=== PATIENT | male | born 1955 | race Caucasian/White ===

== ENCOUNTER 2020-05-02 04:20 | Emergency (ER) | payer MEDICARE, MEDICAID ==
[2020-05-02] MEDS ORDERED: Albuterol/Ipratropium 3.0-0.5 MG/3 ML Neb Soln NEB ONE (05:00)
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
[2020-05-02 05:35] LABS: ANION GAP 9.8 mmol/L (5-15); CHLORIDE,CL 108 mmol/L (98-107); SODIUM,NA 144 mmol/L (136-145)
[2020-05-02] MEDS ORDERED: Furosemide 40 MG/4 ML VIAL IVPUSH ONE (06:08)
[2020-05-02 06:53] VITALS: BP 148/76; PULSE 62
[2020-05-02 07:06] LABS: PCO2 ARTERIAL,POC 47 mmHg (35-48)
--- NOTE | 2020-05-02 08:06 | CR ---
[id number] RAD/RAD Chest PA or AP 1V EXAM: SINGLE VIEW CHEST. INDICATION: SHORTNESS OF BREATH COMPARISON: CORRELATION IS MADE WITH NOVEMBER 09, 2012 FINDINGS: There is mild to moderate edema. There are small bilateral effusions The cardiac silhouette is enlarged IMPRESSION: MODERATE CHF Mane Castillo MD 05/02/20 0805 Thank you for allowing us to participate in the care of your patient.
== END 2020-05-02 07:03 ==
LOC: KA.ED 04:20
DX: I50.9 Heart failure, unspecified (principal); R60.1 Generalized edema; R09.02 Hypoxemia; R00.1 Bradycardia, unspecified; E11.9 Type 2 diabetes mellitus without complications; F17.210 Nicotine dependence, cigarettes, uncomplicated; Z20.822 Contact with and (suspected) exposure to COVID-19; Z91.041 Radiographic dye allergy status; Z79.899 Other long term (current) drug therapy
CPT/HCPCS: 36600; 71045; 80053; 82803; 83880; 84484; 85025; 93005; 94640; 96374; 99284; 99285-25; J1940; J7620-GY; U0002

== ENCOUNTER 2021-01-19 04:53 | Inpatient (IN) | payer MEDICARE, MEDICAID ==
[2021-01-19] MEDS ORDERED: Sodium Chloride 0.9% 10 ML Syringe FLUSH PRN (05:15)
[2021-01-19] MEDS ORDERED: Aspirin 81 MG Tab.Chew PO ONE (05:17)
[2021-01-19] MEDS ORDERED: Albuterol/Ipratropium 3.0-0.5 MG/3 ML Neb Soln NEB ONE (05:40)
[2021-01-19 06:26] LABS: CHLORIDE,CL 107 mmol/L (98-107); SODIUM,NA 147 mmol/L (136-145)
--- NOTE | 2021-01-19 07:54 | EDM.PDOC ---
ED HPI GENERAL MEDICAL PROBLEM - General Chief Complaint: General Stated Complaint: chest pain, SOB Time Seen by Provider: 01/19/21 05:10 Source of Information: Reports: Patient History Limitations: Reports: No Limitations - History of Present Illness INITIAL COMMENTS - FREE TEXT/NARRATIVE: 65-year-old male presents to the emergency room with complaints of dyspnea and chest pain over the last 48 hours. Patient has a long history of COPD and cardiac. He is on home oxygen at night. O2 saturation upon arrival was at 58%. He was placed on a nonrebreather at 10 L and O2 saturations improved nicely to 96%. He states that he began having increasing shortness of breath and chest pain over the last 48 hours. He denies any diaphoresis. He feels he is had some increased swelling in his lower legs. He denies any radiation of his chest pain to his shoulder back jaw or abdomen. No nausea or vomiting. No recent respiratory infections. 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 He had a CT scan noncontrast on 12/29/2020. CT findings showed chronic extensive changes along paronychia with an overall findings appearing stable. He has stable pulmonary nodules. Showing severe coronary artery calcifications. Most recent cardiac nuclear study dated is 6 on 06/12/20. He continues to be a current a smoker half a pack a day. He has smoked for the past 40+ years. He was at 1 time a 2 to 3 pack a day smoker. Past medical history is significant for non-ST elevated SD. Hypertension, diabetes, morbid obesity, congestive heart failure with preserved ejection fraction. Respiratory failure, hyperlipidemia. Postsurgical history includes drug-eluting coronary stent placement, AAA repair, long-term current use of anticoagulation, paradoxical atrial fibrillation. Onset: Gradual Onset Date: 01/17/21 Duration: Day(s):, Getting Worse Location: Reports: Chest Severity: Moderate Improves with: Reports: Rest Worsens with: Reports: Breathing, Movement Associated Symptoms: Reports: Chest Pain, Cough, Shortness of Breath. Denies: cough w sputum, Diaphoresis, Fever/Chills, Headaches, Nausea/Vomiting, Syncope Treatments CAR CUSTOMIZER: Reports: Oxygen (Home O2) Left Chest Pain Score (Numeric/FACES): 8 - Related Data Allergies Allergy/AdvReac Type Severity Reaction Status Date / Time dye for diagnostic testing Allergy Edema Uncoded 01/19/21 05:38 Home Meds: Home Meds atorvaSTATin [Lipitor] 40 mg PO DAILY 10/01/14 [History] metFORMIN [Glucophage] 1,000 mg PO BID 10/01/14 [History] Gabapentin [Neurontin] 300 mg PO TID 05/02/20 [History] Metoprolol Tartrate 50 mg PO BID 05/02/20 [History] Omeprazole 20 mg PO QAM 05/02/20 [History] Terbinafine HCl 250 mg PO DAILY 05/02/20 [History] amLODIPine Besylate [Amlodipine Besylate] 10 mg PO DAILY 05/02/20 [History] Albuterol [Ventolin HFA] 2 puff INH Q4H PRN 01/19/21 [History] Aspirin [Aspirin EC] 81 mg PO DAILY 01/19/21 [History] Bumetanide [Bumex] 2 mg PO DAILY 01/19/21 [History] Hydrocodone/Acetaminophen [HYDROcodone-Acetaminophen 10-325 MG] 1 each PO BID PRN 01/19/21 [History] Isosorbide Mononitrate [Isosorbide Mononitrate ER] 60 mg PO DAILY 01/19/21 [History] Liraglutide [Victoza 3-Wilian] 1.8 mg SQ DAILY 01/19/21 [History] Azqsmdaq-Pqgftvfvt-Esgvczrejfktsf (Cortisporin) 4 drop EARRT TID 01/19/21 [History] Nitroglycerin [Nitrostat] 0.4 mg SL ASDIRECTED PRN 01/19/21 [History] Olopatadine [Patanol 0.1% Ophth Soln] 1 drop EYEBOTH BID PRN 01/19/21 [History] Umeclidinium [place] [Incruse Ellipta] 62.5 mcg IN DAILY 01/19/21 [History] Warfarin Sodium [Jantoven] 5 mg PO ASDIRECTED 01/19/21 [History] Past Medical History Cardiovascular History: Reports: High Cholesterol, Hypertension, Stents Respiratory History: Reports: SOB Musculoskeletal History: Reports: Back Pain, Chronic Endocrine/Metabolic History: Reports: Diabetes, Type II - Infectious Disease History Infectious Disease History: Reports: Measles, Mumps - Past Surgical History Cardiovascular Surgical History: Reports: AAA Repair, Coronary Artery Stent Other Cardiovascular Surgeries/Procedures: AAA repair 01/12/20 Musculoskeletal Surgical History: Reports: Knee Replacement, Other (See Below) Other Musculoskeletal Surgeries/Procedures:: back surgery Social & Family History - Caffeine Use Caffeine Use: Reports: Coffee ED ROS GENERAL - Review of Systems Review Of Systems: See Below Constitutional: Reports: Weakness. Denies: Fever, Chills, Diaphoresis HEENT: Reports: No Symptoms Respiratory: Reports: Shortness of Breath, Cough. Denies: Sputum Cardiovascular: Reports: Chest Pain, Blood Pressure Problem, Dyspnea on Exertion. Denies: Orthopnea Endocrine: Reports: No Symptoms GI/Abdominal: Denies: Abdominal Pain, Nausea, Vomiting : Reports: No Symptoms Musculoskeletal: Denies: Joint Pain, Joint Swelling Skin: Denies: Cyanosis, Jaundice, Pallor, Diaphoresis, Pruritis, Rash Neurological: Denies: Confusion, Dizziness, Headache, Trouble Speaking Psychiatric: Reports: No Symptoms Hematologic/Lymphatic: Reports: No Symptoms Immunologic: Reports: No Symptoms ED EXAM, GENERAL - Physical Exam Exam: See Below Exam Limited By: No Limitations General Appearance: Alert, No Apparent Distress, Obese Eye Exam: Bilateral Eye: EOMI, PERRL Ears: Hearing Grossly Normal Nose: Normal Inspection Throat/Mouth: Normal Inspection, Normal Lips, Normal Voice, No Airway Compromise. No: Perioral Cyanosis Head: Atraumatic, Normocephalic Neck: Normal Inspection, Supple, Non-Tender, Full Range of Motion Respiratory/Chest: Respiratory Distress, Decreased Breath Sounds, Crackles, Wheezing. No: Accessory Muscle Use, Retractions, Splinting Cardiovascular: Normal Peripheral Pulses, Regular Rate, Rhythm Peripheral Pulses: 1+: Dorsalis Pedis (L), Dorsalis Pedis (R), 2+: Carotid (L), Carotid (R), Radial (L), Radial (R) GI/Abdominal: Soft, Non-Tender, No Abnormal Bruit Back Exam: Normal Inspection Extremities: Normal Inspection, Pedal Edema (Mild bilateral lower extremities nonpitting) Neurological: Alert, Oriented, No Motor/Sensory Deficits #1 Interpretation EKG Date: 01/19/21 Time: 05:01 Rhythm: Other (Sinus rhythm with premature atrial complexes) [place]: Normal P-Wave: Variable QRS: Normal ST-T: Other (ST abnormality, possible digitalis effect) QT: Prolonged Comparison: NA - No Prior EKG EKG Interpretation Comments: Sinus rhythm with premature atrial complexes with aberrant conduction ST abnormality, possible digitalis effect Prolonged QT abnormal ECG Course - Vital Signs Last Recorded V/S: Last Vital Signs Temp 97.3 F 01/19/21 04:58 Pulse 75 01/19/21 07:37 Resp 16 01/19/21 07:37 BP 164/98 H 01/19/21 07:37 Pulse Ox 96 01/19/21 07:37 - Orders/Labs/Meds Orders: Active Orders 24 hr Category Date Time Status Peripheral IV Care [RC] . DIRECTED Care 01/19/21 05:15 Active RT Aerosol Therapy [RC] ASDIRECTED Care 01/19/21 05:40 Active Sodium Chloride 0.9% [Saline Flush] Med 01/19/21 05:15 Active 10 ml FLUSH Q8HR PRN Peripheral IV Insertion Adult [OM.PC] Routine Oth 01/19/21 05:15 Ordered EKG 12 Lead [EK] Stat Ther 01/19/21 05:00 Ordered Medication Orders Sodium Chloride (Sodium Chloride 0.9% 10 Ml Syringe) 10 ml FLUSH Q8HR PRN PRN Reason: keep vein open Last Admin: 01/19/21 05:33 Dose: 10 ml Documented by: TATY Labs: Laboratory Tests 01/19/21 01/19/21 01/19/21 Range/Units 05:35 05:35 06:00 WBC 7.36 (5.00-10.00) 10^3/uL RBC 4.12 L (4.50-6.00) 10^6/uL Hgb 10.7 L (13.0-17.0) g/dL Hct 35.3 L (40.0-52.0) % MCV 85.7 (82.0-92.0) fL MCH 26.0 L (27.0-31.0) pg MCHC 30.3 L (32.0-36.0) g/dL RDW 15.9 H (11.5-14.5) % Plt Count 275 (150-400) 10^3/uL MPV 8.7 (7.4-10.4) fL Immature Gran % (Auto) 0.4 (0.0-5.0) % Neut % (Auto) 66.3 (50.0-70.0) % Lymph % (Auto) 19.7 L (20.0-40.0) % [place] % (Auto) 8.0 (2.0-8.0) % Eos % (Auto) 5.2 H (1.0-3.0) % Baso % (Auto) 0.4 (0.0-1.0) % Neut # (Auto) 4.88 (2.50-7.00) 10^3/uL Lymph # (Auto) 1.45 (1.00-4.00) 10^3/uL [place] # (Auto) 0.59 (0.10-0.80) 10^3/uL Eos # (Auto) 0.38 H (0.10-0.30) 10^3/uL Baso # (Auto) 0.03 (0.00-0.10) 10^3/uL Immature Gran # (Auto) 0.03 (0.00-0.50) 10^3/uL Sodium 147 H (136-145) mmol/L Potassium 3.9 (3.5-5.1) mmol/L Chloride 107 (98-107) mmol/L Carbon Dioxide 29.9 (21.0-32.0) mmol/L Anion Gap 14.0 (5-15) mmol/L BUN 20 H (7-18) mg/dL Creatinine 1.02 (0.51-1.17) mg/dL Est Cr Clr Drug Dosing TNP Estimated GFR (MDRD) > 60 mL/min Glucose 204 H (70-140) mg/dL Calcium 8.6 L (8.7-10.3) mg/dL Troponin I High Sens 24.600 (0-76.000) pg/mL B-Natriuretic Peptide 429 H (0-100) pg/mL SARS CoV-2 RNA Rapid ILA Negative (NEGATIVE) Meds: Medications Generic Name Dose Route Start Last Admin Trade Name Freq PRN Reason Stop Dose Admin Sodium Chloride 10 ml 01/19/21 05:15 01/19/21 05:33 Sodium Chloride 0.9% 10 Ml Syringe FLUSH 10 ml Q8HR PRN Administration keep vein open Discontinued Medications Generic Name Dose Route Start Last Admin Trade Name Freq PRN Reason Stop Dose Admin Albuterol/Ipratropium 3 ml 01/19/21 05:40 01/19/21 05:51 Albuterol/Ipratropium 3.0-0.5 Mg/3 Ml Neb Soln NEB 11/05/21 05:41 3 ml ONETIME ONE Administration Aspirin 324 mg 01/19/21 05:17 01/19/21 05:25 Aspirin 81 Mg Tab.Chew PO 01/19/21 05:18 324 mg ONETIME ONE Administration - Radiology Interpretation Free Text/Narrative:: 2 view chest x-ray Findings: Heart size within normal limits. Similar interstitial opacification scattered throughout the bilateral lungs. Small right pleural effusion is stable. No suspicious bony lesions. Impression: Similar interstitial lung opacification from either pulmonary edema or pneumonia. Stable right pleural effusion. CT chest without IV contrast. Comparison: Correlation is made with current chest radiograph. Findings: There are nodule densities. There is a bilateral interstitial pattern. 5 mm nodule seen in the right lung base. Calcified granuloma seen in the right lung base. There are small effusions. There is significant mediastinal adenopathy. The interstitial pattern was present in April of this year. There is no adrenal mass. There is minimal prominence of the limbs of the left adrenal gland. There are tiny gallstones. Impression: Underlying interstitial pattern likely fibrosis. Central lobar oh emphysema. Occasional nonspecific nodular densities and granulomatosis changes. Superimposed component of edema suspected. Small right effusion. Minimal left effusion. Moderate mediastinal adenopathy. - Re-Assessments/Exams Free Text/Narrative Re-Assessment/Exam: 01/19/21 08:03 Patient was stable and feeling much better after DuoNeb treatment. He was maintaining greater than 96% O2 saturations on a nonrebreather. I did try to wean the patient off O2 saturation we placed him on nasal cannula at 4 L and was destat to the 89%. He was placed back on a nonrebreather at 10 L. Patient was maintaining O2 saturations currently 95%. CT scan was ordered this had to be noncontrast as he has an allergy previously to dye. Departure - Departure Time of Disposition: 08:38 Disposition: Admitted As Inpatient 65 Condition: Fair Clinical Impression: COPD with acute exacerbation, Hypoxic episode Congestive heart failure Qualifiers: Heart failure chronicity: acute - Discharge Information Forms: ED Department Discharge Sepsis Event Note (ED) - Evaluation Sepsis Screening Result: No Definite Risk - Focused Exam Vital Signs: Vital Signs Temp Pulse Pulse Resp BP BP Pulse Ox 01/19/21 07:37 75 16 164/98 H 96 01/19/21 07:16 71 19 165/86 H 92 L 11/05/21 07:01 68 17 157/83 H 93 L 01/19/21 06:46 70 15 158/84 H 86 L 01/19/21 06:40 85 L 01/19/21 06:36 88 L 01/19/21 06:31 76 155/81 H 96 01/19/21 06:16 71 150/81 H 93 L 01/19/21 06:01 74 154/82 H 94 L 01/19/21 05:46 85 21 H 01/19/21 05:40 80 01/19/21 05:31 84 24 H 159/88 H 92 L 01/19/21 05:16 79 22 H 143/83 H 97 01/19/21 05:01 83 21 H 171/91 H 98 01/19/21 04:58 97.3 F 87 18 171/100 H 95 Pulse Ox 01/19/21 07:37 01/19/21 07:16 01/19/21 07:01 01/19/21 06:46 01/19/21 06:40 01/19/21 06:36 01/19/21 06:31 01/19/21 06:16 01/19/21 06:01 01/19/21 05:46 01/19/21 05:40 97 01/19/21 05:31 01/19/21 05:16 01/19/21 05:01 01/19/21 04:58 - My Orders Last 24 Hours: My Active Orders 01/19/21 05:00 EKG 12 Lead [EK] Stat 01/19/21 05:15 Peripheral IV Care [RC] . DIRECTED Sodium Chloride 0.9% [Saline Flush] 10 ml FLUSH Q8HR PRN Peripheral IV Insertion Adult [OM.PC] Routine 01/19/21 05:40 RT Aerosol Therapy [RC] ASDIRECTED - Assessment/Plan Last 24 Hours: My Active Orders 01/19/21 05:00 EKG 12 Lead [EK] Stat 01/19/21 05:15 Peripheral IV Care [RC] . DIRECTED Sodium Chloride 0.9% [Saline Flush] 10 ml FLUSH Q8HR PRN Peripheral IV Insertion Adult [OM.PC] Routine 01/19/21 05:40 RT Aerosol Therapy [RC] ASDIRECTED Assessment:: Acute exacerbation of COPD, unable to maintain O2 saturations on nasal cannula. Congestive heart failure Hypoxic Plan: 1. CT scan was negative for PE. Patient has acute exacerbation of his COPD unable to maintain O2 saturations on nasal cannula. He is breathing much better now that he has had a DuoNeb treatment and nonrebreather. His COVID rapid test was negative. Troponin levels were negative. White count remains abnormal. Patient is unable to maintain O2 saturations and will not be able to go home he is going to need to be admitted for acute exacerbation of his COPD. Likely will need to be started on steroids including nebulized treatments. And mildly elevated congestive heart failure exacerbation patient will likely need to be diuresed. I discussed this with [place] provider fire suppression captain who will accept the patient as an inpatient admission.
--- NOTE | 2021-01-19 08:17 | CR ---
[id number] RAD/RAD Chest PA And Lateral EXAM: RAD Chest PA And Lateral CLINICAL DATA: CHEST PAIN SHORTNESS OF BREATH COMPARISON: CORRELATION IS MADE WITH THE CURRENT CAT SCAN CORRELATION IS MADE WITH FILMS 2020 FINDINGS: There is an interstitial pattern There is a small moderate right pleural effusion The lungs are hyperaerated The cardiomediastinal contour is stable but enlarged IMPRESSION: PROBABLE MODERATE CONGESTIVE HEART FAILURE Mane Castillo MD 01/19/21 0816 Thank you for allowing us to participate in the care of your patient.
--- NOTE | 2021-01-19 08:20 | CT ---
[id number] CT/CT Chest WO IV Exam: CT Chest WO IV Clinical Data: SHORTNESS OF BREATH COMPARISON: CORRELATION IS MADE WITH THE CURRENT CHEST RADIOGRAPH FINDINGS: There is a bilateral interstitial pattern There are nodular densities A 5 mm nodule is seen at the right lung base on image 70, series 3 A calcified granuloma is seen at the right lung base on image 1, series 2 There are small effusions There is significant mediastinal adenopathy The interstitial pattern was present in April this year. There is no adrenal mass There is minimal prominence of the limbs of the left adrenal gland There are tiny gallstones IMPRESSION: UNDERLYING INTERSTITIAL PATTERN LIKELY FIBROSIS CENTRILOBULAR EMPHYSEMA OCCASIONAL NONSPECIFIC NODULAR DENSITIES AND GRANULOMATOUS CHANGES SUPERIMPOSED COMPONENT OF EDEMA SUSPECTED SMALL RIGHT EFFUSION MINIMAL LEFT EFFUSION MODERATE MEDIASTINAL ADENOPATHY Mane Castillo MD 01/19/21 0819 Thank you for allowing us to participate in the care of your patient.
[2021-01-19 09:32] LABS: O2 DELIVERY DEVICE NON REBR MASK
[2021-01-19 09:37] LABS: O2 SATURATION ARTERIAL 78 %; PCO2 ARTERIAL 42 mmHg (35-48)
[2021-01-19 09:38] LABS: BASE EXCESS ARTERIAL 0 mmol/L ((-2)-(+3)); BICARBONATE,ARTERIAL 25 mmol/L (21-28)
[2021-01-19 09:40] LABS: PO2 ARTERIAL 43 mmHg (83-108)
--- NOTE | 2021-01-19 09:44 | PCM.HP.2 ---
H&P History of Present Illness - General Date of Service: 01/19/21 Admit Problem/Dx: Admission Diagnosis/Problem Admission Diagnosis/Problem COPD, Severe chronic obstructive pulmonary disease Left Chest Pain Score (Numeric/FACES): 8 - Related Data Allergies/Adverse Reactions: Allergies Allergy/AdvReac Type Severity Reaction Status Date / Time dye for diagnostic testing Allergy Edema Uncoded 01/19/21 05:38 Home Medications: Home Meds atorvaSTATin [Lipitor] 40 mg PO DAILY 10/01/14 [History] metFORMIN [Glucophage] 1,000 mg PO BID 10/01/14 [History] Gabapentin [Neurontin] 300 mg PO TID 05/02/20 [History] Metoprolol Tartrate 50 mg PO BID 05/02/20 [History] Omeprazole 20 mg PO QAM 05/02/20 [History] Terbinafine HCl 250 mg PO DAILY 05/02/20 [History] amLODIPine Besylate [Amlodipine Besylate] 10 mg PO DAILY 05/02/20 [History] Albuterol [Ventolin HFA] 2 puff INH Q4H PRN 01/19/21 [History] Aspirin [Aspirin EC] 81 mg PO DAILY 01/19/21 [History] Bumetanide [Bumex] 2 mg PO DAILY 01/19/21 [History] Hydrocodone/Acetaminophen [HYDROcodone-Acetaminophen 10-325 MG] 1 each PO BID PRN 01/19/21 [History] Isosorbide Mononitrate [Isosorbide Mononitrate ER] 60 mg PO DAILY 01/19/21 [History] Liraglutide [Victoza 3-Wilian] 1.8 mg SQ DAILY 01/19/21 [History] Xmlmipat-Fukrlqgzc-Hypgccygweviry (Cortisporin) 4 drop EARRT TID 01/19/21 [History] Nitroglycerin [Nitrostat] 0.4 mg SL ASDIRECTED PRN 01/19/21 [History] Olopatadine [Patanol 0.1% Ophth Soln] 1 drop EYEBOTH BID PRN 01/19/21 [History] Umeclidinium [place] [Incruse Ellipta] 1 puff IN DAILY 01/19/21 [History] Warfarin Sodium [Jantoven] 5 mg PO ASDIRECTED 01/19/21 [History] Past Medical History Cardiovascular History: Reports: Afib, CAD, Heart Failure, High Cholesterol, Hypertension, Stents Other Cardiovascular History: NSTEMI Respiratory History: Reports: COPD, Interstitial Lung Disease, Intubation, Difficult, SOB Gastrointestinal History: Reports: Colon Polyp, GERD Musculoskeletal History: Reports: Back Pain, Chronic Endocrine/Metabolic History: Reports: Diabetes, Type II, Obesity/BMI 30+ Hematologic History: Reports: Anticoagulation Therapy - Infectious Disease History Infectious Disease History: Reports: Measles, Mumps - Past Surgical History Cardiovascular Surgical History: Reports: AAA Repair, Coronary Artery Stent Other Cardiovascular Surgeries/Procedures: AAA repair 01/12/20 Musculoskeletal Surgical History: Reports: Knee Replacement, Other (See Below) Other Musculoskeletal Surgeries/Procedures:: back surgery Social & Family History - Tobacco Use Tobacco Use Status *Q: Current Every Day Tobacco User Years of Tobacco use: 45 Packs/Tins Daily: 0.5 - Caffeine Use Caffeine Use: Reports: Energy Drinks, Soda Other Caffeine Use: 01-19-21: "I usually have 4-5 energy drinks a day, but I quit 2 days ago. I quit drinking soda 2 days ago also." - Recreational Drug Use Recreational Drug Use: No H&P Review of Systems - Review of Systems: Review Of Systems: See Below Free Text/Narrative: Patient reports increased SOB the past 2 days with "bubbly cough," increased leg swelling and difficulty breathing when lying flat which has prompted him to use additional pillows at night. Denies fever, chills. General: Reports: No Symptoms HEENT: Reports: No Symptoms Pulmonary: Reports: Shortness of Breath, Pleuritic Chest Pain, Cough (bubbly sputum) Cardiovascular: Reports: Chest Pain, Dyspnea on Exertion, Edema Gastrointestinal: Reports: No Symptoms. Denies: Nausea Genitourinary: Reports: No Symptoms Musculoskeletal: Reports: No Symptoms Skin: Reports: No Symptoms Psychiatric: Reports: No Symptoms Neurological: Reports: No Symptoms Hematologic/Lymphatic: Reports: No Symptoms Immunologic: Reports: No Symptoms Exam - Exam Exam: See Below - Vital Signs Vital Signs: Last Vital Signs Temp 97.3 F 01/19/21 04:58 Pulse 70 01/19/21 08:34 Resp 18 01/19/21 08:34 BP 142/77 H 01/19/21 08:34 Pulse Ox 97 01/19/21 08:34 Weight: 270 lb - Exam Quality Assessment: Supplemental Oxygen (titrated down to 4L NC) General: Alert, Oriented, Cooperative, Mild Distress HEENT: Conjunctiva Clear, Mucosa Moist & [place], Other (reddneded nose) Neck: Supple, Trachea Midline Lungs: Decreased Breath Sounds, Crackles, Wheezing (mild). No: Rhonchi Cardiovascular: Regular Rate, Regular Rhythm. No: Systolic Murmur GI/Abdominal Exam: Normal Bowel Sounds, Soft, Non-Tender, No Distention (Male) Exam: Deferred Rectal (Males) Exam: Deferred Extremities: Normal Inspection, Normal Range of Motion, Non-Tender, Normal Capillary Refill, Pedal Edema (2+ bilaterally ) Peripheral Pulses: 2+: Dorsalis Pedis (L), Dorsalis Pedis (R) Skin: Warm, Dry, Intact Neurological: Normal Speech Neuro Extensive - Mental Status: Alert, Oriented x3, Normal Mood/Affect, Normal Cognition Psychiatric: Alert, Normal Affect, Normal Mood Physical Exam Comments:: Clubbing of the fingertips which are dusky in color - Patient Data Lab Results Last 24 hrs: Laboratory Results - last 24 hr 01/19/21 01/19/21 01/19/21 Range/Units 05:35 05:35 06:00 WBC 7.36 (5.00-10.00) 10^3/uL RBC 4.12 L (4.50-6.00) 10^6/uL Hgb 10.7 L (13.0-17.0) g/dL Hct 35.3 L (40.0-52.0) % MCV 85.7 (82.0-92.0) fL MCH 26.0 L (27.0-31.0) pg MCHC 30.3 L (32.0-36.0) g/dL RDW 15.9 H (11.5-14.5) % Plt Count 275 (150-400) 10^3/uL MPV 8.7 (7.4-10.4) fL Immature Gran % (Auto) 0.4 (0.0-5.0) % Neut % (Auto) 66.3 (50.0-70.0) % Lymph % (Auto) 19.7 L (20.0-40.0) % [place] % (Auto) 8.0 (2.0-8.0) % Eos % (Auto) 5.2 H (1.0-3.0) % Baso % (Auto) 0.4 (0.0-1.0) % Neut # (Auto) 4.88 (2.50-7.00) 10^3/uL Lymph # (Auto) 1.45 (1.00-4.00) 10^3/uL [place] # (Auto) 0.59 (0.10-0.80) 10^3/uL Eos # (Auto) 0.38 H (0.10-0.30) 10^3/uL Baso # (Auto) 0.03 (0.00-0.10) 10^3/uL Immature Gran # (Auto) 0.03 (0.00-0.50) 10^3/uL ABG pH (7.35-7.45) pH ABG pCO2 (35-48) mmHg ABG pO2 (83-108) mmHg ABG HCO3 (21-28) mmol/L ABG Total CO2 (22-29) mmol/L ABG O2 Saturation % ABG Base Excess ((-2)-(+3)) mmol/L O2 Delivery Device Sodium 147 H (136-145) mmol/L Potassium 3.9 (3.5-5.1) mmol/L Chloride 107 (98-107) mmol/L Carbon Dioxide 29.9 (21.0-32.0) mmol/L Anion Gap 14.0 (5-15) mmol/L BUN 20 H (7-18) mg/dL Creatinine 1.02 (0.51-1.17) mg/dL Est Cr Clr Drug Dosing TNP Estimated GFR (MDRD) > 60 mL/min Glucose 204 H (70-140) mg/dL Calcium 8.6 L (8.7-10.3) mg/dL Troponin I High Sens 24.600 (0-76.000) pg/mL B-Natriuretic Peptide 429 H (0-100) pg/mL SARS CoV-2 RNA Rapid ILA Negative (NEGATIVE) 01/19/21 Range/Units 09:25 WBC (5.00-10.00) 10^3/uL RBC (4.50-6.00) 10^6/uL Hgb (13.0-17.0) g/dL Hct (40.0-52.0) % MCV (82.0-92.0) fL MCH (27.0-31.0) pg MCHC (32.0-36.0) g/dL RDW (11.5-14.5) % Plt Count (150-400) 10^3/uL MPV (7.4-10.4) fL Immature Gran % (Auto) (0.0-5.0) % Neut % (Auto) (50.0-70.0) % Lymph % (Auto) (20.0-40.0) % [place] % (Auto) (2.0-8.0) % Eos % (Auto) (1.0-3.0) % Baso % (Auto) (0.0-1.0) % Neut # (Auto) (2.50-7.00) 10^3/uL Lymph # (Auto) (1.00-4.00) 10^3/uL [place] # (Auto) (0.10-0.80) 10^3/uL Eos # (Auto) (0.10-0.30) 10^3/uL Baso # (Auto) (0.00-0.10) 10^3/uL Immature Gran # (Auto) (0.00-0.50) 10^3/uL ABG pH 7.38 (7.35-7.45) pH ABG pCO2 42 (35-48) mmHg ABG pO2 43 L* (83-108) mmHg ABG HCO3 25 (21-28) mmol/L ABG Total CO2 26 (22-29) mmol/L ABG O2 Saturation 78 % ABG Base Excess 0 ((-2)-(+3)) mmol/L O2 Delivery Device Non rebr mask Sodium (136-145) mmol/L Potassium (3.5-5.1) mmol/L Chloride (98-107) mmol/L Carbon Dioxide (21.0-32.0) mmol/L Anion Gap (5-15) mmol/L BUN (7-18) mg/dL Creatinine (0.51-1.17) mg/dL Est Cr Clr Drug Dosing Estimated GFR (MDRD) mL/min Glucose (70-140) mg/dL Calcium (8.7-10.3) mg/dL Troponin I High Sens (0-76.000) pg/mL B-Natriuretic Peptide (0-100) pg/mL SARS CoV-2 RNA Rapid ILA (NEGATIVE) Result Diagrams: 01/20/21 05:11 01/20/21 07:00 Sepsis Event Note - Evaluation Sepsis Screening Result: No Definite Risk - Focused Exam Vital Signs: Vital Signs Temp Pulse Pulse Resp BP BP Pulse Ox 01/19/21 08:34 70 18 142/77 H 97 01/19/21 07:37 75 16 164/98 H 96 01/19/21 07:16 71 19 165/86 H 92 L 01/19/21 07:01 68 17 157/83 H 93 L 01/19/21 06:46 70 15 158/84 H 86 L 01/19/21 06:40 85 L 01/19/21 06:36 88 L 01/19/21 06:31 76 155/81 H 96 01/19/21 06:16 71 150/81 H 93 L 01/19/21 06:01 74 154/82 H 94 L 01/19/21 05:46 85 21 H 01/19/21 05:40 80 01/19/21 05:31 84 24 H 159/88 H 92 L 01/19/21 05:16 79 22 H 143/83 H 97 01/19/21 05:01 83 21 H 171/91 H 98 01/19/21 04:58 97.3 F 87 18 171/100 H 95 Pulse Ox 01/19/21 08:34 01/19/21 07:37 01/19/21 07:16 01/19/21 07:01 01/19/21 06:46 01/19/21 06:40 01/19/21 06:36 01/19/21 06:31 01/19/21 06:16 01/19/21 06:01 01/19/21 05:46 01/19/21 05:40 97 01/19/21 05:31 01/19/21 05:16 01/19/21 05:01 01/19/21 04:58 Problem List Initiated/Reviewed/Updated: Yes Orders Last 24hrs: Active Orders 24 hr Category Date Time Status Patient Status [ADT] Routine ADT 01/19/21 08:45 Active Cardiac Monitoring [RC] CONTINUOUS Care 01/19/21 09:39 Ordered Height and Weight [RC] DAILY Care 01/19/21 09:38 Ordered Intake and Output [RC] QSHIFT Care 01/19/21 09:39 Ordered Oxygen Therapy [RC] PRN Care 01/19/21 09:38 Ordered RT Aerosol Therapy [RC] ASDIRECTED Care 01/19/21 05:40 Active Up With Assistance [RC] ASDIRECTED Care 01/19/21 09:38 Ordered VTE/DVT Education [RC] PER UNIT ROUTINE Care 01/19/21 09:38 Ordered Vital Signs [RC] Q4H Care 01/19/21 08:45 Active Vital Signs [RC] Q4H Care 01/19/21 09:38 Ordered [employer] Diet [DIET] Diet 01/19/21 Lunch Ordered Heart Healthy Diet [DIET] Diet 01/19/21 Lunch Ordered Furosemide [Lasix] Med 01/19/21 09:45 Ordered 40 mg IVPUSH BID Sodium Chloride 0.9% [Saline Flush] Med 01/19/21 05:15 Active 10 ml FLUSH Q8HR PRN Peripheral IV Insertion Adult [OM.PC] Routine Oth 01/19/21 05:15 Ordered Resuscitation Status Routine Resus Stat 01/19/21 09:38 Ordered EKG 12 Lead [EK] Stat Ther 01/19/21 05:00 Ordered Medication Orders Furosemide (Furosemide 40 Mg/4 Ml Vial) 40 mg IVPUSH BID FORTUNATO Sodium Chloride (Sodium Chloride 0.9% 10 Ml Syringe) 10 ml FLUSH Q8HR PRN PRN Reason: keep vein open Last Admin: 01/19/21 05:33 Dose: 10 ml Documented by: TATY Assessment/Plan Comment:: HPI summary: Mo is a 65yM patient who presented to the ER with c/o of dyspnea and chest pain over the last 48 hours. Patient has a long history of COPD and cardiac issues. He is on home oxygen at night at 3L. He denies any diaphoresis. He feels he is had some increased swelling in his lower legs. He denies any radiation of his chest pain to his shoulder back jaw or abdomen. No nausea or vomiting. No recent respiratory infections. He was recently seen by his residential treatment specialist. He had a CT scan noncontrast on 12/29/2020. CT findings showed chronic extensive changes along paronychia with an overall findings appearing stable. He has stable pulmonary nodules. Showing severe coronary artery calcifications. Most recent cardiac nuclear study dated is 6 on 06/12/20. He continues to be a current a smoker half a pack a day. He has smoked for the past 40+ years. He was at 1 time a 2 to 3 pack a day smoker. Past medical history is significant for non-ST elevated UT, Hypertension, diabetes, morbid obesity, congestive heart failure with preserved ejection fraction, Respiratory failure, hyperlipidemia. Postsurgical history includes drug-eluting coronary stent placement, AAA repair, long-term current use of anticoagulation, paradoxical atrial fibrillation. Patient had cardiac cath in June,: RCA 80% stenosis and double vessel CAD involving the Left main, LAD and LCx and medi qi management was recommended at that time. ED course: O2 saturation upon arrival was at 58%. He was placed on a nonrebreather at 10 L and O2 saturations improved to 96%.CXR indicated moderate CHF exacerbation, CT indicated centrillobular emphysema, underlying interstitial pattern - likely fibrosis, small R pleural effusion, trace L pleural effusion with edema suspected. WBC 7.36, Hgb 10.7, Plt 275. Na 147, K 3.9, BUN 20, Creatinine 1.02, Glu 204, BNP 429. EKG: NSR w PAC's, Prolonged QT - GA 196ms, QRS 102ms, QTc 492. Trop negative. Hospital course: 01/19/21: Patient c/o increased SOB, worsened edema to his legs, increased difficulty lying flat the past few nights and "bubbly cough." Denies fever, chills. No increased wheezing. Crackles to bilateral bases, +2 edema to bilateral lower extremities. O2 adequate on 4-5L, would avoid flow rates greater than this if possible due to COPD and concern of hypercapnia. pH 7.38, CO2 42, HCO3 25. Suspect CHF exacerbation is likely etiology of symptoms rather than COPD based on HPI, imaging results and exam findings. Will plan to diurese patient with IV lasix. Patient had increased bumex dosing for 3 days approximately two weeks ago and is scheduled to follow up with cardiology [facility] on 01/24. Patient continues to smoke and does not want a nicotine patch. He has significant clubbing of his fingertips which are rather dusky. Hospitalization problems and plan: # Acute on chronic congestive heart failure; BNP 429, pleural effusion and edema per chest CT results # Acute hypoxic respiratory failure - Lasix 40mg IV BID for diuresis - Supplemental oxygen to maintain O2 sat > 88% - Daily weight - I&O - Continue cardiac monitoring - Repeat labs in am CBC, CMP, Mg, Phos, INR Chronic, stable conditions: # HFpEF - on bumex 2mg daily (Hold while on IV lasix) # CAD - continue metoprolol tartrate 50mg BI; isosorbide 60mg PO daily, aspirin 81mg daily # Hx of NSTEMI # HTN - Amlodipine 10mg PO daily # PAF - continue warfarin dosing per pharmacy; INR 2.5 today # s/p AAA repair # COPD - on incruse ellipta (substitute spiriva per pharmacy) and proair inhaler PRN; home oxygen at night 3L at baseline # Hx of respiratory failure # DM without complication - on victoza 1.8mg daily, continue metformin 1000mg PO BID; glucose checks QID with SSI coverage while hospitalized # HLD - Continue atorvastatin 40mg PO daily # Bilateral knee pain - continue gabapentin 300mg PO TID # Dyspepsia - on omeprazole 20mg PO daily (substitute pantoprazole 20mg PO daily) # Onychomycosis - takes lamisil 250mg PO daily (hold) # Tobacco dependency # Hx of colon polyps # s/p R TKA # s/p drug eluding cardiac stents # 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 I anticipate > 2 midnights for treatment of above hospital problems.
[2021-01-19] MEDS ORDERED: Furosemide 40 MG/4 ML VIAL IVPUSH SCH (09:45)
[2021-01-19] MEDS ORDERED: Albuterol 8 GM Inhaler INH PRN (13:39)
[2021-01-19] MEDS ORDERED: 50% Dextrose in Water 50 ML Syringe IVPUSH PRN (13:45)
[2021-01-19] MEDS ORDERED: Warfarin 5 MG Tab PO SCH (13:45)
[2021-01-19] MEDS ORDERED: Glucagon,Human Recombinant 1 MG Vial IM PRN (13:45)
[2021-01-19] MEDS: Gabapentin 300 MG Cap PO SCH ×2 (14:24→21:30)
[2021-01-19] MEDS: atorvaSTATin 40 MG Tab PO SCH (14:24)
[2021-01-19] MEDS: amLODIPine 5 MG Tab PO SCH (14:25)
[2021-01-19] MEDS: Isosorbide Mononitrate 30 MG Tab.ER PO SCH (14:26)
[2021-01-19] MEDS: Aspirin 81 MG Tab.EC PO SCH (15:59)
[2021-01-19] MEDS: Tiotropium Bromide 4 GM Inhalation Spray (2.5mcg/1 dose; 10 doses) INH SCH (17:33)
[2021-01-19] MEDS: Insulin Aspart 100 Units/ML 3 ML Pen SUBCUT SCH ×2 (17:34→21:34)
[2021-01-19] MEDS: Furosemide 40 MG/4 ML VIAL IVPUSH SCH (17:41)
[2021-01-19] MEDS ORDERED: Warfarin 2.5 MG Tab PO SCH (18:00)
[2021-01-19] MEDS: metFORMIN 500 MG Tab PO SCH (21:29)
[2021-01-19] MEDS: Pantoprazole 20 MG Tab, Delayed Release PO SCH (21:29)
[2021-01-19] MEDS: Metoprolol Tartrate 50 MG Tab PO SCH (21:30)
[2021-01-19] MEDS: Sodium Chloride 0.65% Nasal Spray 45 ML Bottle NAS PRN (21:55)
[2021-01-20 08:03] LABS: CHLORIDE,CL 108 mmol/L (98-107); SODIUM,NA 148 mmol/L (136-145)
[2021-01-20 08:18] LABS: ANION GAP 10.4 mmol/L (5-15)
[2021-01-20] MEDS: Furosemide 40 MG/4 ML VIAL IVPUSH SCH ×2 (08:20→17:53)
[2021-01-20] MEDS: Tiotropium Bromide 4 GM Inhalation Spray (2.5mcg/1 dose; 10 doses) INH SCH (08:24)
[2021-01-20] MEDS: atorvaSTATin 40 MG Tab PO SCH (08:24)
[2021-01-20] MEDS: Aspirin 81 MG Tab.EC PO SCH (08:24)
[2021-01-20] MEDS: metFORMIN 500 MG Tab PO SCH ×2 (08:24→21:16)
[2021-01-20] MEDS: Isosorbide Mononitrate 30 MG Tab.ER PO SCH (08:25)
[2021-01-20] MEDS: Gabapentin 300 MG Cap PO SCH ×3 (08:25→21:17)
[2021-01-20] MEDS: amLODIPine 5 MG Tab PO SCH (08:26)
[2021-01-20] MEDS: Metoprolol Tartrate 50 MG Tab PO SCH ×2 (08:26→21:35)
--- NOTE | 2021-01-20 09:27 | PCM.PN ---
- General Info Date of Service: 01/20/21 Functional Status: Reports: Pain Controlled, Tolerating Diet, Ambulating, Urinating. Denies: New Symptoms - Review of Systems General: Reports: No Symptoms HEENT: Reports: No Symptoms Pulmonary: Reports: Shortness of Breath (improving), Cough (improving), Wheezing Cardiovascular: Reports: Dyspnea on Exertion, Edema. Denies: Chest Pain, Palpitations, Lightheadedness Gastrointestinal: Reports: No Symptoms Genitourinary: Reports: No Symptoms Musculoskeletal: Reports: No Symptoms Skin: Reports: No Symptoms Neurological: Reports: No Symptoms Psychiatric: Reports: No Symptoms - Patient Data Vitals - Most Recent: Last Vital Signs Temp 97.1 F 01/20/21 06:22 Pulse 65 01/20/21 08:26 Resp 20 01/20/21 06:22 BP 124/66 01/20/21 08:26 Pulse Ox 88 L 01/20/21 06:22 Weight - Most Recent: 268 lb 3 oz I&O - Last 24 Hours: Intake & Output 01/19/21 01/20/21 01/20/21 22:59 06:59 14:59 Intake Total 510 400 Output Total 1400 400 Balance -890 0 Lab Results Last 24 Hours: Laboratory Results - last 24 hr 01/19/21 01/19/21 01/19/21 Range/Units 05:35 09:25 17:29 WBC (5.00-10.00) 10^3/uL RBC (4.50-6.00) 10^6/uL Hgb (13.0-17.0) g/dL Hct (40.0-52.0) % MCV (82.0-92.0) fL MCH (27.0-31.0) pg MCHC (32.0-36.0) g/dL RDW (11.5-14.5) % Plt Count (150-400) 10^3/uL MPV (7.4-10.4) fL Immature Gran % (Auto) (0.0-5.0) % Neut % (Auto) (50.0-70.0) % Lymph % (Auto) (20.0-40.0) % [place] % (Auto) (2.0-8.0) % Eos % (Auto) (1.0-3.0) % Baso % (Auto) (0.0-1.0) % Neut # (Auto) (2.50-7.00) 10^3/uL Lymph # (Auto) (1.00-4.00) 10^3/uL [place] # (Auto) (0.10-0.80) 10^3/uL Eos # (Auto) (0.10-0.30) 10^3/uL Baso # (Auto) (0.00-0.10) 10^3/uL Immature Gran # (Auto) (0.00-0.50) 10^3/uL PT 24.4 H (9.2-11.2) SEC INR 2.5 H (0.9-1.1) ABG pH 7.38 (7.35-7.45) pH ABG pCO2 42 (35-48) mmHg ABG pO2 43 L* (83-108) mmHg ABG HCO3 25 (21-28) mmol/L ABG Total CO2 26 (22-29) mmol/L ABG O2 Saturation 78 % ABG Base Excess 0 ((-2)-(+3)) mmol/L O2 Delivery Device Non rebr mask Sodium (136-145) mmol/L Potassium (3.5-5.1) mmol/L Chloride (98-107) mmol/L Carbon Dioxide (21.0-32.0) mmol/L Anion Gap (5-15) mmol/L BUN (7-18) mg/dL Creatinine (0.51-1.17) mg/dL Est Cr Clr Drug Dosing mL/min Estimated GFR (MDRD) mL/min Glucose (70-140) mg/dL POC Glucose 144 H (70-140) mg/dL Calcium (8.7-10.3) mg/dL Phosphorus (2.6-4.7) mg/dL Magnesium (1.8-2.4) mg/dL Total Bilirubin (0.2-1.0) mg/dL AST (15-37) U/L ALT (14-63) U/L Alkaline Phosphatase (46-116) U/L Total Protein (6.4-8.2) g/dL Albumin (3.40-5.00) g/dL 01/19/21 01/20/21 01/20/21 Range/Units 21:24 05:11 07:00 WBC 6.45 (5.00-10.00) 10^3/uL RBC 3.92 L (4.50-6.00) 10^6/uL Hgb 10.2 L (13.0-17.0) g/dL Hct 33.5 L (40.0-52.0) % MCV 85.5 (82.0-92.0) fL MCH 26.0 L (27.0-31.0) pg MCHC 30.4 L (32.0-36.0) g/dL RDW 16.0 H (11.5-14.5) % Plt Count 270 (150-400) 10^3/uL MPV 9.0 (7.4-10.4) fL Immature Gran % (Auto) 0.2 (0.0-5.0) % Neut % (Auto) 55.7 (50.0-70.0) % Lymph % (Auto) 27.0 (20.0-40.0) % [place] % (Auto) 10.2 H (2.0-8.0) % Eos % (Auto) 6.4 H (1.0-3.0) % Baso % (Auto) 0.5 (0.0-1.0) % Neut # (Auto) 3.60 (2.50-7.00) 10^3/uL Lymph # (Auto) 1.74 (1.00-4.00) 10^3/uL [place] # (Auto) 0.66 (0.10-0.80) 10^3/uL Eos # (Auto) 0.41 H (0.10-0.30) 10^3/uL Baso # (Auto) 0.03 (0.00-0.10) 10^3/uL Immature Gran # (Auto) 0.01 (0.00-0.50) 10^3/uL PT (9.2-11.2) SEC INR (0.9-1.1) ABG pH (7.35-7.45) pH ABG pCO2 (35-48) mmHg ABG pO2 (83-108) mmHg ABG HCO3 (21-28) mmol/L ABG Total CO2 (22-29) mmol/L ABG O2 Saturation % ABG Base Excess ((-2)-(+3)) mmol/L O2 Delivery Device Sodium 148 H (136-145) mmol/L Potassium 3.9 (3.5-5.1) mmol/L Chloride 108 H (98-107) mmol/L Carbon Dioxide 33.5 H (21.0-32.0) mmol/L Anion Gap 10.4 (5-15) mmol/L BUN 15 (7-18) mg/dL Creatinine 1.05 (0.51-1.17) mg/dL Est Cr Clr Drug Dosing 84.96 mL/min Estimated GFR (MDRD) > 60 mL/min Glucose 125 (70-140) mg/dL POC Glucose 256 H (70-140) mg/dL Calcium 8.2 L (8.7-10.3) mg/dL Phosphorus 3.3 (2.6-4.7) mg/dL Magnesium 1.8 (1.8-2.4) mg/dL Total Bilirubin 0.4 (0.2-1.0) mg/dL AST 14 L (15-37) U/L ALT 21 (14-63) U/L Alkaline Phosphatase 98 (46-116) U/L Total Protein 6.0 L (6.4-8.2) g/dL Albumin 2.45 L (3.40-5.00) g/dL 01/20/21 01/20/21 Range/Units 07:00 07:40 WBC (5.00-10.00) 10^3/uL RBC (4.50-6.00) 10^6/uL Hgb (13.0-17.0) g/dL Hct (40.0-52.0) % MCV (82.0-92.0) fL MCH (27.0-31.0) pg MCHC (32.0-36.0) g/dL RDW (11.5-14.5) % Plt Count (150-400) 10^3/uL MPV (7.4-10.4) fL Immature Gran % (Auto) (0.0-5.0) % Neut % (Auto) (50.0-70.0) % Lymph % (Auto) (20.0-40.0) % [place] % (Auto) (2.0-8.0) % Eos % (Auto) (1.0-3.0) % Baso % (Auto) (0.0-1.0) % Neut # (Auto) (2.50-7.00) 10^3/uL Lymph # (Auto) (1.00-4.00) 10^3/uL [place] # (Auto) (0.10-0.80) 10^3/uL Eos # (Auto) (0.10-0.30) 10^3/uL Baso # (Auto) (0.00-0.10) 10^3/uL Immature Gran # (Auto) (0.00-0.50) 10^3/uL PT 27.5 H (9.2-11.2) SEC INR 2.8 H (0.9-1.1) ABG pH (7.35-7.45) pH ABG pCO2 (35-48) mmHg ABG pO2 (83-108) mmHg ABG HCO3 (21-28) mmol/L ABG Total CO2 (22-29) mmol/L ABG O2 Saturation % ABG Base Excess ((-2)-(+3)) mmol/L O2 Delivery Device Sodium (136-145) mmol/L Potassium (3.5-5.1) mmol/L Chloride (98-107) mmol/L Carbon Dioxide (21.0-32.0) mmol/L Anion Gap (5-15) mmol/L BUN (7-18) mg/dL Creatinine (0.51-1.17) mg/dL Est Cr Clr Drug Dosing mL/min Estimated GFR (MDRD) mL/min Glucose (70-140) mg/dL POC Glucose 121 (70-140) mg/dL Calcium (8.7-10.3) mg/dL Phosphorus (2.6-4.7) mg/dL Magnesium (1.8-2.4) mg/dL Total Bilirubin (0.2-1.0) mg/dL AST (15-37) U/L ALT (14-63) U/L Alkaline Phosphatase (46-116) U/L Total Protein (6.4-8.2) g/dL Albumin (3.40-5.00) g/dL Med Orders - Current: Current Medications Albuterol (Albuterol 8 Gm Inhaler) 0 gm INH Q4H PRN PRN Reason: SOB,wheezing,cough Amlodipine Besylate (Amlodipine 5 Mg Tab) 10 mg PO DAILY [facility] Last Admin: 01/20/21 08:26 Dose: 10 mg Documented by: Aspirin (Aspirin 81 Mg Tab.Ec) 81 mg PO DAILY [facility] Last Admin: 01/20/21 08:24 Dose: 81 mg Documented by: Atorvastatin Calcium (Atorvastatin 40 Mg Tab) 40 mg PO DAILY [facility] Last Admin: 01/20/21 08:24 Dose: 40 mg Documented by: Dextrose/Water (50% Dextrose In Water 50 Ml Syringe) 50 ml IVPUSH ASDIRECTED PRN PRN Reason: Hypoglycemia Furosemide (Furosemide 40 Mg/4 Ml Vial) 40 mg IVPUSH BIDDIURETIC [facility] Last Admin: 01/20/21 08:20 Dose: 40 mg Documented by: Gabapentin (Gabapentin 300 Mg Cap) 300 mg PO TID [facility] Last Admin: 01/20/21 08:25 Dose: 300 mg Documented by: Glucagon (Glucagon,Human Recombinant 1 Mg Vial) 1 mg IM ASDIRECTED PRN PRN Reason: Hypoglycemia Insulin Aspart (Insulin Aspart 100 Units/Ml 3 Ml Pen) 0 unit SUBCUT WITH MEALSANDBED [facility]; Protocol Last Admin: 01/19/21 21:34 Dose: 6 unit Documented by: Isosorbide Mononitrate (Isosorbide Mononitrate 30 Mg Tab.Er) 60 mg PO DAILY [facility] Last Admin: 01/20/21 08:25 Dose: 60 mg Documented by: Metformin HCl (Metformin 500 Mg Tab) 1,000 mg PO BID [facility] Last Admin: 01/20/21 08:24 Dose: 1,000 mg Documented by: Metoprolol Tartrate (Metoprolol Tartrate 50 Mg Tab) 50 mg PO BID [facility] Last Admin: 01/20/21 08:26 Dose: 50 mg Documented by: Pantoprazole Sodium (Pantoprazole 20 Mg Tab, Delayed Release) 20 mg PO BEDTIME [facility] Last Admin: 01/19/21 21:29 Dose: 20 mg Documented by: Sodium Chloride (Sodium Chloride 0.9% 10 Ml Syringe) 10 ml FLUSH Q8HR PRN PRN Reason: keep vein open Last Admin: 01/19/21 05:33 Dose: 10 ml Documented by: Sodium Chloride (Sodium Chloride 0.65% Nasal [place] 45 Ml Bottle) 0 ml OLIVIER Q6H PRN PRN Reason: Congestion Last Admin: 01/19/21 21:55 Dose: 1 spray Documented by: Tiotropium [place] (Tiotropium [place] 4 Gm Inhalation [place] (2.5mcg/1 Dose; 10 Doses)) 0 gm INH DAILY [facility] Last Admin: 01/20/21 08:24 Dose: 2 inhaler Documented by: Warfarin Sodium (Warfarin 2.5 Mg Tab) 2.5 mg PO MoWeFr [facility] Last Admin: 01/19/21 17:30 Dose: 2.5 mg Documented by: Warfarin Sodium (Warfarin 5 Mg Tab) [facility] Sodium (Pharmacy To Dose - Warfarin) 0 dose PO ASDIRECTED [facility] Discontinued Medications Albuterol/Ipratropium (Albuterol/Ipratropium 3.0-0.5 Mg/3 Ml Neb Soln) 3 ml NEB ONETIME ONE Stop: 01/19/21 05:41 Last Admin: 01/19/21 05:51 Dose: 3 ml Documented by: Aspirin (Aspirin 81 Mg Tab.Chew) 324 mg PO ONETIME ONE Stop: 01/19/21 05:18 Last Admin: 01/19/21 05:25 Dose: 324 mg Documented by: Furosemide (Furosemide 40 Mg/4 Ml Vial) 40 mg IVPUSH BID [facility] Last Admin: 01/19/21 10:03 Dose: 40 mg Documented by: - Exam Quality Assessment: Supplemental Oxygen (4L), DVT Prophylaxis (on coumadin) General: Alert, Oriented, Cooperative, No Acute Distress HEENT: Pupils Equal, Pupils Reactive, Mucous Membr. Moist/[place] Neck: Supple, Trachea Midline Lungs: Decreased Breath Sounds, Crackles, Rhonchi, Wheezing Cardiovascular: Regular Rate, Regular Rhythm, No Murmurs GI/Abdominal Exam: Normal Bowel Sounds, Soft, Non-Tender, No Distention (Male) Exam: Deferred Back Exam: Normal Inspection, Full Range of Motion Extremities: Normal Inspection, Normal Range of Motion, Non-Tender, Normal Capillary Refill, Pedal Edema (+1 BLE) Peripheral Pulses: 2+: Dorsalis Pedis (L), Dorsalis Pedis (R) Skin: Warm, Dry, Intact Neurological: No New Focal Deficit Psy/Mental Status: Alert, Normal Affect, Normal Mood - Patient Data Lab Results Last 24 hrs: Laboratory Results - last 24 hr 01/19/21 01/19/21 01/19/21 Range/Units 05:35 09:25 17:29 WBC (5.00-10.00) 10^3/uL RBC (4.50-6.00) 10^6/uL Hgb (13.0-17.0) g/dL Hct (40.0-52.0) % MCV (82.0-92.0) fL MCH (27.0-31.0) pg MCHC (32.0-36.0) g/dL RDW (11.5-14.5) % Plt Count (150-400) 10^3/uL MPV (7.4-10.4) fL Immature Gran % (Auto) (0.0-5.0) % Neut % (Auto) (50.0-70.0) % Lymph % (Auto) (20.0-40.0) % [place] % (Auto) (2.0-8.0) % Eos % (Auto) (1.0-3.0) % Baso % (Auto) (0.0-1.0) % Neut # (Auto) (2.50-7.00) 10^3/uL Lymph # (Auto) (1.00-4.00) 10^3/uL [place] # (Auto) (0.10-0.80) 10^3/uL Eos # (Auto) (0.10-0.30) 10^3/uL Baso # (Auto) (0.00-0.10) 10^3/uL Immature Gran # (Auto) (0.00-0.50) 10^3/uL PT 24.4 H (9.2-11.2) SEC INR 2.5 H (0.9-1.1) ABG pH 7.38 (7.35-7.45) pH ABG pCO2 42 (35-48) mmHg ABG pO2 43 L* (83-108) mmHg ABG HCO3 25 (21-28) mmol/L ABG Total CO2 26 (22-29) mmol/L ABG O2 Saturation 78 % ABG Base Excess 0 ((-2)-(+3)) mmol/L O2 Delivery Device Non rebr mask Sodium (136-145) mmol/L Potassium (3.5-5.1) mmol/L Chloride (98-107) mmol/L Carbon Dioxide (21.0-32.0) mmol/L Anion Gap (5-15) mmol/L BUN (7-18) mg/dL Creatinine (0.51-1.17) mg/dL Est Cr Clr Drug Dosing mL/min Estimated GFR (MDRD) mL/min Glucose (70-140) mg/dL POC Glucose 144 H (70-140) mg/dL Calcium (8.7-10.3) mg/dL Phosphorus (2.6-4.7) mg/dL Magnesium (1.8-2.4) mg/dL Total Bilirubin (0.2-1.0) mg/dL AST (15-37) U/L ALT (14-63) U/L Alkaline Phosphatase (46-116) U/L Total Protein (6.4-8.2) g/dL Albumin (3.40-5.00) g/dL 01/19/21 01/20/21 01/20/21 Range/Units 21:24 05:11 07:00 WBC 6.45 (5.00-10.00) 10^3/uL RBC 3.92 L (4.50-6.00) 10^6/uL Hgb 10.2 L (13.0-17.0) g/dL Hct 33.5 L (40.0-52.0) % MCV 85.5 (82.0-92.0) fL MCH 26.0 L (27.0-31.0) pg MCHC 30.4 L (32.0-36.0) g/dL RDW 16.0 H (11.5-14.5) % Plt Count 270 (150-400) 10^3/uL MPV 9.0 (7.4-10.4) fL Immature Gran % (Auto) 0.2 (0.0-5.0) % Neut % (Auto) 55.7 (50.0-70.0) % Lymph % (Auto) 27.0 (20.0-40.0) % [place] % (Auto) 10.2 H (2.0-8.0) % Eos % (Auto) 6.4 H (1.0-3.0) % Baso % (Auto) 0.5 (0.0-1.0) % Neut # (Auto) 3.60 (2.50-7.00) 10^3/uL Lymph # (Auto) 1.74 (1.00-4.00) 10^3/uL [place] # (Auto) 0.66 (0.10-0.80) 10^3/uL Eos # (Auto) 0.41 H (0.10-0.30) 10^3/uL Baso # (Auto) 0.03 (0.00-0.10) 10^3/uL Immature Gran # (Auto) 0.01 (0.00-0.50) 10^3/uL PT (9.2-11.2) SEC INR (0.9-1.1) ABG pH (7.35-7.45) pH ABG pCO2 (35-48) mmHg ABG pO2 (83-108) mmHg ABG HCO3 (21-28) mmol/L ABG Total CO2 (22-29) mmol/L ABG O2 Saturation % ABG Base Excess ((-2)-(+3)) mmol/L O2 Delivery Device Sodium 148 H (136-145) mmol/L Potassium 3.9 (3.5-5.1) mmol/L Chloride 108 H (98-107) mmol/L Carbon Dioxide 33.5 H (21.0-32.0) mmol/L Anion Gap 10.4 (5-15) mmol/L BUN 15 (7-18) mg/dL Creatinine 1.05 (0.51-1.17) mg/dL Est Cr Clr Drug Dosing 84.96 mL/min Estimated GFR (MDRD) > 60 mL/min Glucose 125 (70-140) mg/dL POC Glucose 256 H (70-140) mg/dL Calcium 8.2 L (8.7-10.3) mg/dL Phosphorus 3.3 (2.6-4.7) mg/dL Magnesium 1.8 (1.8-2.4) mg/dL Total Bilirubin 0.4 (0.2-1.0) mg/dL AST 14 L (15-37) U/L ALT 21 (14-63) U/L Alkaline Phosphatase 98 (46-116) U/L Total Protein 6.0 L (6.4-8.2) g/dL Albumin 2.45 L (3.40-5.00) g/dL 01/20/21 01/20/21 Range/Units 07:00 07:40 WBC (5.00-10.00) 10^3/uL RBC (4.50-6.00) 10^6/uL Hgb (13.0-17.0) g/dL Hct (40.0-52.0) % MCV (82.0-92.0) fL MCH (27.0-31.0) pg MCHC (32.0-36.0) g/dL RDW (11.5-14.5) % Plt Count (150-400) 10^3/uL MPV (7.4-10.4) fL Immature Gran % (Auto) (0.0-5.0) % Neut % (Auto) (50.0-70.0) % Lymph % (Auto) (20.0-40.0) % [place] % (Auto) (2.0-8.0) % Eos % (Auto) (1.0-3.0) % Baso % (Auto) (0.0-1.0) % Neut # (Auto) (2.50-7.00) 10^3/uL Lymph # (Auto) (1.00-4.00) 10^3/uL [place] # (Auto) (0.10-0.80) 10^3/uL Eos # (Auto) (0.10-0.30) 10^3/uL Baso # (Auto) (0.00-0.10) 10^3/uL Immature Gran # (Auto) (0.00-0.50) 10^3/uL PT 27.5 H (9.2-11.2) SEC INR 2.8 H (0.9-1.1) ABG pH (7.35-7.45) pH ABG pCO2 (35-48) mmHg ABG pO2 (83-108) mmHg ABG HCO3 (21-28) mmol/L ABG Total CO2 (22-29) mmol/L ABG O2 Saturation % ABG Base Excess ((-2)-(+3)) mmol/L O2 Delivery Device Sodium (136-145) mmol/L Potassium (3.5-5.1) mmol/L Chloride (98-107) mmol/L Carbon Dioxide (21.0-32.0) mmol/L Anion Gap (5-15) mmol/L BUN (7-18) mg/dL Creatinine (0.51-1.17) mg/dL Est Cr Clr Drug Dosing mL/min Estimated GFR (MDRD) mL/min Glucose (70-140) mg/dL POC Glucose 121 (70-140) mg/dL Calcium (8.7-10.3) mg/dL Phosphorus (2.6-4.7) mg/dL Magnesium (1.8-2.4) mg/dL Total Bilirubin (0.2-1.0) mg/dL AST (15-37) U/L ALT (14-63) U/L Alkaline Phosphatase (46-116) U/L Total Protein (6.4-8.2) g/dL Albumin (3.40-5.00) g/dL Result Diagrams: 01/20/21 05:11 01/20/21 07:00 Sepsis Event Note - Evaluation Sepsis Screening Result: No Definite Risk - Focused Exam Vital Signs: Vital Signs Temp Pulse Pulse Resp BP BP Pulse Ox 01/20/21 08:26 65 124/66 01/20/21 08:25 124/66 01/20/21 06:22 97.1 F 65 20 124/66 88 L 01/20/21 03:00 97.6 F 69 24 H 118/57 L 88 L 01/19/21 21:30 79 119/63 - Problem List Review Problem List Initiated/Reviewed/Updated: Yes - My Orders Last 24 Hours: My Active Orders 01/19/21 09:38 Height and Weight [RC] 0700 Oxygen Therapy [RC] PRN Up With Assistance [RC] ASDIRECTED VTE/DVT Education [RC] PER UNIT ROUTINE Vital Signs [RC] 0300,0700,1100,1500,1900,2300 Resuscitation Status Routine 01/19/21 09:39 Cardiac Monitoring [RC] 03,07,11,15,19,23 Intake and Output [RC] 0600,1400,2200 01/19/21 Lunch [employer] Diet [DIET] Heart Healthy Diet [DIET] 01/19/21 12:24 Consult to Case Management/Underground [employer] [CONS] Routine 01/19/21 13:39 Albuterol [Ventolin HFA] 0 gm INH Q4H PRN 01/19/21 13:45 Glucose [Blood Glucose Check, Bedside] [RC] WITHMEALSANDBED Dextrose 50% in Water 50 ml IVPUSH ASDIRECTED PRN Glucagon,Human Recombinant [GlucaGen] 1 mg IM ASDIRECTED PRN 01/19/21 14:00 Gabapentin [Neurontin] 300 mg PO TID amLODIPine [Norvasc] 10 mg PO DAILY atorvaSTATin [Lipitor] 40 mg PO DAILY 01/19/21 14:30 Aspirin [Halfprin] 81 mg PO DAILY Isosorbide Mononitrate [Imdur] 60 mg PO DAILY 01/19/21 15:30 Tiotropium [place] [Spiriva Respimat] 0 gm INH DAILY Warfarin Pharmacy to Dose [Pharmacy to Dose - Warfarin] 0 dose PO ASDIRECTED 01/19/21 17:30 Furosemide [Lasix] 40 mg IVPUSH BIDDIURETIC 01/19/21 18:00 Insulin Aspart [NovoLOG] See Protocol SUBCUT WITHMEALSANDBED Warfarin [Coumadin] 2.5 mg PO MoWeFr 01/19/21 21:00 Metoprolol Tartrate [Lopressor] 50 mg PO BID Pantoprazole 20 mg PO BEDTIME metFORMIN [Glucophage] 1,000 mg PO BID 01/19/21 21:43 Sodium Chloride 0.65% [[place] Nasal [place]] See Dose Instructions OLIVIER Q6H PRN 01/20/21 18:00 Warfarin [Coumadin] 5 mg PO SuTuThSa 01/22/21 05:11 INR,PT,PROTHROMBIN TIME [COAG] DAILY - Plan Plan:: HPI summary: Mo is a 65yM patient who presented to the ER with c/o of dyspnea and chest pain over the last 48 hours. Patient has a long history of COPD and cardiac issues. He is on home oxygen at night at 3L. He denies any diaphoresis. He feels he is had some increased swelling in his lower legs. He denies any radiation of his chest pain to his shoulder back jaw or abdomen. No nausea or vomiting. No recent respiratory infections. He was recently seen by his bobbin handler. He had a CT scan noncontrast on 12/29/2020. CT findings showed chronic extensive changes along paronychia with an overall findings appearing stable. He has stable pulmonary nodules. Showing severe coronary artery calcifications. Most recent cardiac nuclear study dated is 6 on 06/12/20. He continues to be a current a smoker half a pack a day. He has smoked for the past 40+ years. He was at 1 time a 2 to 3 pack a day smoker. Past medical history is significant for non-ST elevated [place], Hypertension, diabetes, morbid obesity, congestive heart failure with preserved ejection fraction, Respiratory failure, hyperlipidemia. Postsurgical history includes drug-eluting coronary stent placement, AAA repair, long-term current use of anticoagulation, paradoxical atrial fibrillation. Patient had cardiac cath in June,: RCA 80% stenosis and double vessel CAD involving the Left main, LAD and LCx and medical management was recommended at that time. ED course: O2 saturation upon arrival was at 58%. He was placed on a nonrebreather at 10 L and O2 saturations improved to 96%.CXR indicated moderate CHF exacerbation, CT indicated centrillobular emphysema, underlying interstitial pattern - likely fibrosis, small R pleural effusion, trace L pleural effusion with edema suspected. WBC 7.36, Hgb 10.7, Plt 275. Na 147, K 3.9, BUN 20, Creatinine 1.02, Glu 204, BNP 429. EKG: NSR w PAC's, Prolonged QT - [place] 196ms, QRS 102ms, QTc 492. Trop negative. Hospital course: 01/19/21: Patient c/o increased SOB, worsened edema to his legs, increased difficulty lying flat the past few nights and "bubbly cough." Denies fever, chills. No increased wheezing. Crackles to bilateral bases, +2 edema to bilateral lower extremities. O2 adequate on 4-5L, would avoid flow rates greater than this if possible due to COPD and concern of hypercapnia. pH 7.38, CO2 42, HCO3 25. Suspect CHF exacerbation is likely etiology of symptoms rather than COPD based on HPI, imaging results and exam findings. Will plan to diurese patient with IV lasix. Patient had increased bumex dosing for 3 days approximately two weeks ago and is scheduled to follow up with cardiology [employer] on 01/24. Patient continues to smoke and does not want a nicotine patch. He has significant clubbing of his fingertips which are rather dusky. 01/20/21: No calls overnight, patient slept well. Cough, SOB improving, patient able to lie flatter in bed. Lung sounds diminished, wheezy. Edema improved this am, +1 bilaterally. Remains on 4L O2 to maintain O2 sat > 88%. Hemodynam ically stable, afebrile. WBC 6.45, Hgb 10.2, Plt 270. Na 148, K 3.9, Cl 108, CO2 33.5, BUN 15, Creatinine 1.05. Will continue to diurese patient for fluid overload, CHF exacerbation. Will add solumedrol today due to wheezing and continued increased O2 demands as only on O2 at night at home at baseline. Diuresing well with IV lasix, K stable. Hospitalization problems and plan: # Acute on chronic congestive heart failure; BNP 429, pleural effusion and edema per chest CT results # Acute hypoxic respiratory failure - Continue lasix 40mg IV BID for diuresis - Supplemental oxygen to maintain O2 sat > 88% - Daily weight - I&O - Continue cardiac monitoring - Repeat labs in am CBC, CMP, Mg, Phos, INR # COPD - On 3L O2 at night at baseline - Solumedrol 40mg IV Q8H - Continue spiriva - Continue albuterol inhaler PRN Chronic, stable conditions: # HFpEF - on bumex 2mg daily (Hold while on IV lasix) # CAD - continue metoprolol tartrate 50mg BI; isosorbide 60mg PO daily, aspirin 81mg daily # Hx of NSTEMI # HTN - Amlodipine 10mg PO daily # PAF - continue warfarin dosing per pharmacy; INR 2.8 today # s/p AAA repair # Hx of respiratory failure # DM without complication - on victoza 1.8mg daily, continue metformin 1000mg PO BID; glucose checks QID with SSI coverage while hospitalized # HLD - Continue atorvastatin 40mg PO daily # Bilateral knee pain - continue gabapentin 300mg PO TID # Dyspepsia - on omeprazole 20mg PO daily (substitute pantoprazole 20mg PO daily) # Onychomycosis - takes lamisil 250mg PO daily (hold) # Tobacco dependency # Hx of colon polyps # s/p R TKA # s/p drug eluding cardiac stents # alf use of anticoagulant Hospitalization details: # FEN: Oral fluids, electrolytes stable, ADA/heart healthy diet # PPX: continue warfarin, pantoprazole # Code status: FULL CODE # Emergency contact: Sachi Asif [phone] # Disposition: Patient to remain on inpatient status for treatment of CHF exacerbation with underlying COPD, hypoxia. Discharge anticipated in next few days based on clinical course.
[2021-01-20] MEDS: methylPREDNISolone Sodium Succinate 125 MG/2 ML SDV IVPUSH SCH ×2 (10:53→17:54)
[2021-01-20] MEDS: Insulin Aspart 100 Units/ML 3 ML Pen SUBCUT SCH ×4 (10:55→21:35)
[2021-01-20] MEDS ORDERED: Warfarin 5 MG Tab PO SCH (18:00)
[2021-01-20] MEDS: Pantoprazole 20 MG Tab, Delayed Release PO SCH (21:17)
[2021-01-21] MEDS ORDERED: Acetaminophen 325 MG Tab PO PRN (03:19)
[2021-01-21] MEDS: methylPREDNISolone Sodium Succinate 125 MG/2 ML SDV IVPUSH SCH ×4 (03:27→17:44)
[2021-01-21 08:20] LABS: ANION GAP 14.1 mmol/L (5-15); CHLORIDE,CL 105 mmol/L (98-107); SODIUM,NA 142 mmol/L (136-145)
[2021-01-21] MEDS: Tiotropium Bromide 4 GM Inhalation Spray (2.5mcg/1 dose; 10 doses) INH SCH (08:21)
[2021-01-21] MEDS: Gabapentin 300 MG Cap PO SCH ×3 (08:22→21:15)
[2021-01-21] MEDS: atorvaSTATin 40 MG Tab PO SCH (08:22)
[2021-01-21] MEDS: amLODIPine 5 MG Tab PO SCH (08:22)
[2021-01-21] MEDS: Aspirin 81 MG Tab.EC PO SCH (08:22)
[2021-01-21] MEDS: metFORMIN 500 MG Tab PO SCH ×2 (08:23→21:15)
[2021-01-21] MEDS: Metoprolol Tartrate 50 MG Tab PO SCH ×2 (08:23→21:19)
[2021-01-21] MEDS: Isosorbide Mononitrate 30 MG Tab.ER PO SCH (08:23)
[2021-01-21] MEDS: Furosemide 40 MG/4 ML VIAL IVPUSH SCH (08:24)
[2021-01-21] MEDS: Insulin Aspart 100 Units/ML 3 ML Pen SUBCUT SCH ×4 (08:26→21:20)
--- NOTE | 2021-01-21 10:43 | PCM.PN ---
- General Info Date of Service: 01/21/21 Functional Status: Reports: Pain Controlled, Tolerating Diet, Ambulating, Urinating. Denies: New Symptoms - Review of Systems General: Reports: No Symptoms HEENT: Reports: No Symptoms Pulmonary: Reports: Shortness of Breath (improving), Cough (stable), Wheezing (improving) Cardiovascular: Reports: Dyspnea on Exertion (improved), Orthopnea (improved), Edema (improved) Gastrointestinal: Reports: No Symptoms Genitourinary: Reports: No Symptoms Musculoskeletal: Reports: No Symptoms Skin: Reports: No Symptoms Neurological: Reports: No Symptoms Psychiatric: Reports: No Symptoms - Patient Data Vitals - Most Recent: Last Vital Signs Temp 97.2 F 01/21/21 06:17 Pulse 88 01/21/21 08:23 Resp 20 01/21/21 06:17 BP 128/72 01/21/21 08:23 Pulse Ox 88 L 01/21/21 06:17 Weight - Most Recent: 268 lb 8 oz I&O - Last 24 Hours: Intake & Output 01/20/21 01/21/21 01/21/21 23:59 06:59 14:59 Intake Total Output Total Balance Lab Results Last 24 Hours: Laboratory Results - last 24 hr 01/20/21 01/20/21 01/20/21 Range/Units 11:26 17:43 21:15 WBC (5.00-10.00) 10^3/uL RBC (4.50-6.00) 10^6/uL Hgb (13.0-17.0) g/dL Hct (40.0-52.0) % MCV (82.0-92.0) fL MCH (27.0-31.0) pg MCHC (32.0-36.0) g/dL RDW (11.5-14.5) % Plt Count (150-400) 10^3/uL MPV (7.4-10.4) fL Immature Gran % (Auto) (0.0-5.0) % Neut % (Auto) (50.0-70.0) % Lymph % (Auto) (20.0-40.0) % [place] % (Auto) (2.0-8.0) % Eos % (Auto) (1.0-3.0) % Baso % (Auto) (0.0-1.0) % Neut # (Auto) (2.50-7.00) 10^3/uL Lymph # (Auto) (1.00-4.00) 10^3/uL [place] # (Auto) (0.10-0.80) 10^3/uL Eos # (Auto) (0.10-0.30) 10^3/uL Baso # (Auto) (0.00-0.10) 10^3/uL Immature Gran # (Auto) (0.00-0.50) 10^3/uL PT (9.2-11.2) SEC INR (0.9-1.1) Sodium (136-145) mmol/L Potassium (3.5-5.1) mmol/L Chloride (98-107) mmol/L Carbon Dioxide (21.0-32.0) mmol/L Anion Gap (5-15) mmol/L BUN (7-18) mg/dL Creatinine (0.51-1.17) mg/dL Est Cr Clr Drug Dosing mL/min Estimated GFR (MDRD) mL/min Glucose (70-140) mg/dL POC Glucose 169 H 316 H 415 H (70-140) mg/dL Calcium (8.7-10.3) mg/dL Total Bilirubin (0.2-1.0) mg/dL AST (15-37) U/L ALT (14-63) U/L Alkaline Phosphatase (46-116) U/L C-Reactive Protein (0.0-0.9) mg/dL Total Protein (6.4-8.2) g/dL Albumin (3.40-5.00) g/dL 01/21/21 01/21/21 01/21/21 Range/Units 07:08 07:08 07:08 WBC 6.46 (5.00-10.00) 10^3/uL RBC 3.99 L (4.50-6.00) 10^6/uL Hgb 10.4 L (13.0-17.0) g/dL Hct 33.4 L (40.0-52.0) % MCV 83.7 (82.0-92.0) fL MCH 26.1 L (27.0-31.0) pg MCHC 31.1 L (32.0-36.0) g/dL RDW 15.7 H (11.5-14.5) % Plt Count 282 (150-400) 10^3/uL MPV 9.1 (7.4-10.4) fL Immature Gran % (Auto) 0.3 (0.0-5.0) % Neut % (Auto) 85.9 H (50.0-70.0) % Lymph % (Auto) 11.3 L (20.0-40.0) % [place] % (Auto) 2.5 (2.0-8.0) % Eos % (Auto) 0.0 L (1.0-3.0) % Baso % (Auto) 0.0 (0.0-1.0) % Neut # (Auto) 5.55 (2.50-7.00) 10^3/uL Lymph # (Auto) 0.73 L (1.00-4.00) 10^3/uL [place] # (Auto) 0.16 (0.10-0.80) 10^3/uL Eos # (Auto) 0.00 L (0.10-0.30) 10^3/uL Baso # (Auto) 0.00 (0.00-0.10) 10^3/uL Immature Gran # (Auto) 0.02 (0.00-0.50) 10^3/uL PT 29.5 H (9.2-11.2) SEC INR 3.0 H (0.9-1.1) Sodium 142 (136-145) mmol/L Potassium 4.3 (3.5-5.1) mmol/L Chloride 105 (98-107) mmol/L Carbon Dioxide 27.2 (21.0-32.0) mmol/L Anion Gap 14.1 (5-15) mmol/L BUN 20 H (7-18) mg/dL Creatinine 1.01 (0.51-1.17) mg/dL Est Cr Clr Drug Dosing 88.33 mL/min Estimated GFR (MDRD) > 60 mL/min Glucose 281 H (70-140) mg/dL POC Glucose (70-140) mg/dL Calcium 8.8 (8.7-10.3) mg/dL Total Bilirubin 0.3 (0.2-1.0) mg/dL AST 14 L (15-37) U/L ALT 22 (14-63) U/L Alkaline Phosphatase 96 (46-116) U/L C-Reactive Protein 2.8 H (0.0-0.9) mg/dL Total Protein 7.1 (6.4-8.2) g/dL Albumin 2.61 L (3.40-5.00) g/dL 01/21/21 Range/Units 08:20 WBC (5.00-10.00) 10^3/uL RBC (4.50-6.00) 10^6/uL Hgb (13.0-17.0) g/dL Hct (40.0-52.0) % MCV (82.0-92.0) fL MCH (27.0-31.0) pg MCHC (32.0-36.0) g/dL RDW (11.5-14.5) % Plt Count (150-400) 10^3/uL MPV (7.4-10.4) fL Immature Gran % (Auto) (0.0-5.0) % Neut % (Auto) (50.0-70.0) % Lymph % (Auto) (20.0-40.0) % [place] % (Auto) (2.0-8.0) % Eos % (Auto) (1.0-3.0) % Baso % (Auto) (0.0-1.0) % Neut # (Auto) (2.50-7.00) 10^3/uL Lymph # (Auto) (1.00-4.00) 10^3/uL [place] # (Auto) (0.10-0.80) 10^3/uL Eos # (Auto) (0.10-0.30) 10^3/uL Baso # (Auto) (0.00-0.10) 10^3/uL Immature Gran # (Auto) (0.00-0.50) 10^3/uL PT (9.2-11.2) SEC INR (0.9-1.1) Sodium (136-145) mmol/L Potassium (3.5-5.1) mmol/L Chloride (98-107) mmol/L Carbon Dioxide (21.0-32.0) mmol/L Anion Gap (5-15) mmol/L BUN (7-18) mg/dL Creatinine (0.51-1.17) mg/dL Est Cr Clr Drug Dosing mL/min Estimated GFR (MDRD) mL/min Glucose (70-140) mg/dL POC Glucose 273 H (70-140) mg/dL Calcium (8.7-10.3) mg/dL Total Bilirubin (0.2-1.0) mg/dL AST (15-37) U/L ALT (14-63) U/L Alkaline Phosphatase (46-116) U/L C-Reactive Protein (0.0-0.9) mg/dL Total Protein (6.4-8.2) g/dL Albumin (3.40-5.00) g/dL Med Orders - Current: Current Medications Acetaminophen (Acetaminophen 325 Mg Tab) 650 mg PO Q4H PRN PRN Reason: Pain Last Admin: 01/21/21 03:28 Dose: 650 mg Documented by: Albuterol (Albuterol 8 Gm Inhaler) 0 gm INH Q4H PRN PRN Reason: SOB,wheezing,cough Amlodipine Besylate (Amlodipine 5 Mg Tab) 10 mg PO DAILY [facility] Last Admin: 01/21/21 08:22 Dose: 10 mg Documented by: Aspirin (Aspirin 81 Mg Tab.Ec) 81 mg PO DAILY [facility] Last Admin: 01/21/21 08:22 Dose: 81 mg Documented by: Atorvastatin Calcium (Atorvastatin 40 Mg Tab) 40 mg PO DAILY [facility] Last Admin: 01/21/21 08:22 Dose: 40 mg Documented by: Dextrose/Water (50% Dextrose In Water 50 Ml Syringe) 50 ml IVPUSH ASDIRECTED PRN PRN Reason: Hypoglycemia Furosemide (Furosemide 40 Mg/4 Ml Vial) 40 mg IVPUSH BIDDIURETIC [facility] Last Admin: 01/21/21 08:24 Dose: 40 mg Documented by: Gabapentin (Gabapentin 300 Mg Cap) 300 mg PO TID [facility] Last Admin: 01/21/21 08:22 Dose: 300 mg Documented by: Glucagon (Glucagon,Human Recombinant 1 Mg Vial) 1 mg IM ASDIRECTED PRN PRN Reason: Hypoglycemia Insulin Aspart (Insulin Aspart 100 Units/Ml 3 Ml Pen) 0 unit SUBCUT W ITHMEALSANDBED [facility]; Protocol Last Admin: 01/21/21 08:26 Dose: 6 unit Documented by: Isosorbide Mononitrate (Isosorbide Mononitrate 30 Mg Tab.Er) 60 mg PO DAILY [facility] Last Admin: 01/21/21 08:23 Dose: 60 mg Documented by: Metformin HCl (Metformin 500 Mg Tab) 1,000 mg PO BID [facility] Last Admin: 01/21/21 08:23 Dose: 1,000 mg Documented by: Methylprednisolone Sodium Succinate (Methylprednisolone Sodium Succinate 125 Mg/2 Ml Sdv) 40 mg IVPUSH Q8H [facility] Last Admin: 01/21/21 08:21 Dose: 40 mg Documented by: Metoprolol Tartrate (Metoprolol Tartrate 50 Mg Tab) 50 mg PO BID [facility] Last Admin: 01/21/21 08:23 Dose: 50 mg Documented by: Pantoprazole Sodium (Pantoprazole 20 Mg Tab, Delayed Release) 20 mg PO BEDTIME [facility] Last Admin: 01/20/21 21:17 Dose: 20 mg Documented by: Sodium Chloride (Sodium Chloride 0.9% 10 Ml Syringe) 10 ml FLUSH Q8HR PRN PRN Reason: keep vein open Last Admin: 01/19/21 05:33 Dose: 10 ml Documented by: Sodium Chloride (Sodium Chloride 0.65% Nasal [place] 45 Ml Bottle) 0 ml [place] Q6H PRN PRN Reason: Congestion Last Admin: 01/19/21 21:55 Dose: 1 spray Documented by: Tiotropium [place] (Tiotropium [place] 4 Gm Inhalation [place] (2.5mcg/1 Dose; 10 Doses)) 0 gm INH DAILY [facility] Last Admin: 01/21/21 08:21 Dose: 2 inhaler Documented by: Warfarin Sodium (Pharmacy To Dose - Warfarin) 0 dose PO ASDIRECTED [facility] Warfarin Sodium (Warfarin 2.5 Mg Tab) 2.5 mg PO ONETIME ONE Stop: 01/21/21 18:01 Discontinued Medications Albuterol/Ipratropium (Albuterol/Ipratropium 3.0-0.5 Mg/3 Ml Neb Soln) 3 ml NEB ONETIME ONE Stop: 01/19/21 05:41 Last Admin: 01/19/21 05:51 Dose: 3 ml Documented by: Aspirin (Aspirin 81 Mg Tab.Chew) 324 mg PO ONETIME ONE Stop: 01/19/21 05:18 Last Admin: 01/19/21 05:25 Dose: 324 mg Documented by: Furosemide (Furosemide 40 Mg/4 Ml Vial) 40 mg IVPUSH BID [facility] Last Admin: 01/19/21 10:03 Dose: 40 mg Documented by: Warfarin Sodium (Warfarin 2.5 Mg Tab) 2.5 mg PO MoWeFr [facility] Last Admin: 01/19/21 17:30 Dose: 2.5 mg Documented by: Warfarin Sodium (Warfarin 5 Mg Tab) 5 mg PO SuTuThSa [facility] Last Admin: 01/20/21 17:56 Dose: 5 mg Documented by: - Exam Quality Assessment: Supplemental Oxygen (On 2L this morning), DVT Prophylaxis (home coumadin) General: Alert, Oriented, Cooperative, No Acute Distress HEENT: Pupils Equal, Pupils Reactive, Mucous Membr. Moist/[place] Neck: Supple, Trachea Midline Lungs: Decreased Breath Sounds, Rhonchi (mild), Wheezing (mild). No: Crackles GI/Abdominal Exam: Normal Bowel Sounds, Soft, Non-Tender, No Distention (Male) Exam: Deferred Back Exam: Normal Inspection, Full Range of Motion Extremities: Normal Inspection, Normal Range of Motion, Non-Tender, Normal Capillary Refill, Pedal Edema (non-pitting to +1 ) Peripheral Pulses: 2+: Dorsalis Pedis (L), Dorsalis Pedis (R) Skin: Warm, Dry, Intact Neurological: No New Focal Deficit Psy/Mental Status: Alert, Normal Affect, Normal Mood - Patient Data Lab Results Last 24 hrs: Laboratory Results - last 24 hr 01/20/21 01/20/21 01/20/21 Range/Units 11:26 17:43 21:15 WBC (5.00-10.00) 10^3/uL RBC (4.50-6.00) 10^6/uL Hgb (13.0-17.0) g/dL Hct (40.0-52.0) % MCV (82.0-92.0) fL MCH (27.0-31.0) pg MCHC (32.0-36.0) g/dL RDW (11.5-14.5) % Plt Count (150-400) 10^3/uL MPV (7.4-10.4) fL Immature Gran % (Auto) (0.0-5.0) % Neut % (Auto) (50.0-70.0) % Lymph % (Auto) (20.0-40.0) % [place] % (Auto) (2.0-8.0) % Eos % (Auto) (1.0-3.0) % Baso % (Auto) (0.0-1.0) % Neut # (Auto) (2.50-7.00) 10^3/uL Lymph # (Auto) (1.00-4.00) 10^3/uL [place] # (Auto) (0.10-0.80) 10^3/uL Eos # (Auto) (0.10-0.30) 10^3/uL Baso # (Auto) (0.00-0.10) 10^3/uL Immature Gran # (Auto) (0.00-0.50) 10^3/uL PT (9.2-11.2) SEC INR (0.9-1.1) Sodium (136-145) mmol/L Potassium (3.5-5.1) mmol/L Chloride (98-107) mmol/L Carbon Dioxide (21.0-32.0) mmol/L Anion Gap (5-15) mmol/L BUN (7-18) mg/dL Creatinine (0.51-1.17) mg/dL Est Cr Clr Drug Dosing mL/min Estimated GFR (MDRD) mL/min Glucose (70-140) mg/dL POC Glucose 169 H 316 H 415 H (70-140) mg/dL Calcium (8.7-10.3) mg/dL Total Bilirubin (0.2-1.0) mg/dL AST (15-37) U/L ALT (14-63) U/L Alkaline Phosphatase (46-116) U/L C-Reactive Protein (0.0-0.9) mg/dL Total Protein (6.4-8.2) g/dL Albumin (3.40-5.00) g/dL 01/21/21 01/21/21 01/21/21 Range/Units 07:08 07:08 07:08 WBC 6.46 (5.00-10.00) 10^3/uL RBC 3.99 L (4.50-6.00) 10^6/uL Hgb 10.4 L (13.0-17.0) g/dL Hct 33.4 L (40.0-52.0) % MCV 83.7 (82.0-92.0) fL MCH 26.1 L (27.0-31.0) pg MCHC 31.1 L (32.0-36.0) g/dL RDW 15.7 H (11.5-14.5) % Plt Count 282 (150-400) 10^3/uL MPV 9.1 (7.4-10.4) fL Immature Gran % (Auto) 0.3 (0.0-5.0) % Neut % (Auto) 85.9 H (50.0-70.0) % Lymph % (Auto) 11.3 L (20.0-40.0) % [place] % (Auto) 2.5 (2.0-8.0) % Eos % (Auto) 0.0 L (1.0-3.0) % Baso % (Auto) 0.0 (0.0-1.0) % Neut # (Auto) 5.55 (2.50-7.00) 10^3/uL Lymph # (Auto) 0.73 L (1.00-4.00) 10^3/uL [place] # (Auto) 0.16 (0.10-0.80) 10^3/uL Eos # (Auto) 0.00 L (0.10-0.30) 10^3/uL Baso # (Auto) 0.00 (0.00-0.10) 10^3/uL Immature Gran # (Auto) 0.02 (0.00-0.50) 10^3/uL PT 29.5 H (9.2-11.2) SEC INR 3.0 H (0.9-1.1) Sodium 142 (136-145) mmol/L Potassium 4.3 (3.5-5.1) mmol/L Chloride 105 (98-107) mmol/L Carbon Dioxide 27.2 (21.0-32.0) mmol/L Anion Gap 14.1 (5-15) mmol/L BUN 20 H (7-18) mg/dL Creatinine 1.01 (0.51-1.17) mg/dL Est Cr Clr Drug Dosing 88.33 mL/min Estimated GFR (MDRD) > 60 mL/min Glucose 281 H (70-140) mg/dL POC Glucose (70-140) mg/dL Calcium 8.8 (8.7-10.3) mg/dL Total Bilirubin 0.3 (0.2-1.0) mg/dL AST 14 L (15-37) U/L ALT 22 (14-63) U/L Alkaline Phosphatase 96 (46-116) U/L C-Reactive Protein 2.8 H (0.0-0.9) mg/dL Total Protein 7.1 (6.4-8.2) g/dL Albumin 2.61 L (3.40-5.00) g/dL 01/21/21 Range/Units 08:20 WBC (5.00-10.00) 10^3/uL RBC (4.50-6.00) 10^6/uL Hgb (13.0-17.0) g/dL Hct (40.0-52.0) % MCV (82.0-92.0) fL MCH (27.0-31.0) pg MCHC (32.0-36.0) g/dL RDW (11.5-14.5) % Plt Count (150-400) 10^3/uL MPV (7.4-10.4) fL Immature Gran % (Auto) (0.0-5.0) % Neut % (Auto) (50.0-70.0) % Lymph % (Auto) (20.0-40.0) % [place] % (Auto) (2.0-8.0) % Eos % (Auto) (1.0-3.0) % Baso % (Auto) (0.0-1.0) % Neut # (Auto) (2.50-7.00) 10^3/uL Lymph # (Auto) (1.00-4.00) 10^3/uL [place] # (Auto) (0.10-0.80) 10^3/uL Eos # (Auto) (0.10-0.30) 10^3/uL Baso # (Auto) (0.00-0.10) 10^3/uL Immature Gran # (Auto) (0.00-0.50) 10^3/uL PT (9.2-11.2) SEC INR (0.9-1.1) Sodium (136-145) mmol/L Potassium (3.5-5.1) mmol/L Chloride (98-107) mmol/L Carbon Dioxide (21.0-32.0) mmol/L Anion Gap (5-15) mmol/L BUN (7-18) mg/dL Creatinine (0.51-1.17) mg/dL Est Cr Clr Drug Dosing mL/min Estimated GFR (MDRD) mL/min Glucose (70-140) mg/dL POC Glucose 273 H (70-140) mg/dL Calcium (8.7-10.3) mg/dL Total Bilirubin (0.2-1.0) mg/dL AST (15-37) U/L ALT (14-63) U/L Alkaline Phosphatase (46-116) U/L C-Reactive Protein (0.0-0.9) mg/dL Total Protein (6.4-8.2) g/dL Albumin (3.40-5.00) g/dL Result Diagrams: 01/21/21 07:08 01/21/21 07:08 Sepsis Event Note - Evaluation Sepsis Screening Result: No Definite Risk - Focused Exam Vital Signs: Vital Signs Temp Pulse Pulse Resp BP BP Pulse Ox 01/21/21 08:23 88 128/72 01/21/21 08:22 128/72 01/21/21 06:17 97.2 F 88 20 128/72 88 L 01/21/21 03:00 96.2 F L 85 20 109/60 91 L - Problem List Review Problem List Initiated/Reviewed/Updated: Yes - My Orders Last 24 Hours: My Active Orders 01/21/21 03:19 Acetaminophen [TylenoL] 650 mg PO Q4H PRN 01/21/21 18:00 Warfarin [Coumadin] 2.5 mg PO ONETIME ONE 01/22/21 05:11 CBC WITH AUTO DIFF [HEME] AM CMP [COMPREHENSIVE METABOLIC PN,CMP] [CHEM] AM CRP [C-REACTIVE PROTEIN] [CHEM] AM INR,PT,PROTHROMBIN TIME [COAG] DAILY - Plan Plan:: HPI summary: Mo is a 65yM patient who presented to the ER with c/o of dyspnea and chest pain over the last 48 hours. Patient has a long history of COPD and cardiac issues. He is on home oxygen at night at 3L. He denies any diaphoresis. He feels he is had some increased swelling in his lower legs. He denies any radiation of his chest pain to his shoulder back jaw or abdomen. No nausea or vomiting. No recent respiratory infections. He was recently seen by his spa concierge. He had a CT scan noncontrast on 12/29/2020. CT findings showed chronic extensive changes along paronychia with an overall findings appearing stable. He has stable pulmonary nodules. Showing severe coronary artery calcifications. Most recent cardiac nuclear study dated is 6 on 06/12/20. He continues to be a current a smoker half a pack a day. He has smoked for the past 40+ years. He was at 1 time a 2 to 3 pack a day smoker. Past medical history is significant for non-ST elevated DE, Hypertension, diabetes, morbid obesity, congestive heart failure with preserved ejection fraction, Respiratory failure, hyperlipidemia. Postsurgical history includes drug-eluting coronary stent placement, AAA repair, long-term current use of anticoagulation, paradoxical atrial fibrillation. Patient had cardiac cath in June,: RCA 80% stenosis and double vessel CAD involving the Left main, LAD and LCx and medical management was recommended at that time. ED course: O2 saturation upon arrival was at 58%. He was placed on a nonrebreather at 10 L and O2 saturations improved to 96%.CXR indicated moderate CHF exacerbation, CT indicated centrillobular emphysema, underlying interstitial pattern - likely fibrosis, small R pleural effusion, trace L pleural effusion with edema suspected. WBC 7.36, Hgb 10.7, Plt 275. Na 147, K 3.9, BUN 20, Creatinine 1.02, Glu 204, BNP 429. EKG: NSR w PAC's, Prolonged QT - DC 196ms, QRS 102ms, QTc 492. Trop negative. Hospital course: 01/19/21: Patient c/o increased SOB, worsened edema to his legs, increased difficulty lying flat the past few nights and "bubbly cough." Denies fever, chills. No increased wheezing. Crackles to bilateral bases, +2 edema to bilateral lower extremities. O2 adequate on 4-5L, would avoid flow rates greater than this if possible due to COPD and concern of hypercapnia. pH 7.38, CO2 42, HCO3 25. Suspect CHF exacerbation is likely etiology of symptoms rather than COPD based on HPI, imaging results and exam findings. Will plan to diurese patient with IV lasix. Patient had increased bumex dosing for 3 days approximately two weeks ago and is scheduled to follow up with cardiology [facility] on 01/24. Patient continues to smoke and does not want a nicotine patch. He has significant clubbing of his fingertips which are rather dusky. 01/20/21: No calls overnight, patient slept well. Cough, SOB improving, patient able to lie flatter in bed. Lung sounds diminished, wheezy. Edema improved this am, +1 bilaterally. Remains on 4L O2 to maintain O2 sat > 88%. Hemodynamically stable, afebrile. WBC 6.45, Hgb 10.2, Plt 270. Na 148, K 3.9, Cl 108, CO2 33.5, BUN 15, Creatinine 1.05. Will continue to diurese patient for fluid overload, CHF exacerbation. Will add solumedrol today due to wheezing and continued increased O2 demands as only on O2 at night at home at baseline. Diuresing well with IV lasix, K stable. 01/21/21: Breathing improved this morning, less wheezing with steroids on board. Less peripheral edema, able to lie flatter without dyspnea. Ambulating in room without dyspnea. Lung sounds improved, continues to have mild wheeze and rhonchi. Edema improved to lower extremities, now non-pitting to +1. Will decrease lasix to 20mg IV BID starting this evening, patient was given 40mg IV this am. BUN slightly increased to 20. Hemodynamically acceptable, afebrile. Oxygen demands decreasing. WBC 6.46, Hgb 10.4, Plt 282. Na 142, K 4.3, BUN 20, Creatinine 1.01, Glu 273, CRP 2.8, albumin 2.61. Hospitalization problems and plan: # Acute on chronic congestive heart failure; BNP 429, pleural effusion and edema per chest CT results # Acute hypoxic respiratory failure; O2 demands decreasing from 4.5L on admission to 2L this morning - Lasix 40mg IV this am, decreased dose to 20mg IV BID starting this evening - Supplemental oxygen to maintain O2 sat > 88% - Daily weight - I&O - DC cardiac monitoring today - Repeat labs in am CBC, CMP, Mg, Phos, INR # COPD - On 3L O2 at night at baseline - Continue Solumedrol 40mg IV Q8H - Continue spiriva - Continue albuterol inhaler PRN - Incentive spirometry 10x/hr while awake Chronic, stable conditions: # HFpEF - on bumex 2mg daily (Hold while on IV lasix) # CAD - continue metoprolol tartrate 50mg BI; isosorbide 60mg PO daily, aspirin 81mg daily # Hx of NSTEMI # HTN - Amlodipine 10mg PO daily # PAF - continue warfarin dosing per pharmacy; INR 3.0 today - likely related to hypoalbuminemia (albumin 2.61); pharmacy to dose # s/p AAA repair # Hx of respiratory failure # DM without complication - on victoza 1.8mg daily, continue metformin 1000mg PO BID; glucose checks QID with SSI coverage while hospitalized # HLD - Continue atorvastatin 40mg PO daily # Bilateral knee pain - continue gabapentin 300mg PO TID # Dyspepsia - on omeprazole 20mg PO daily (substitute pantoprazole 20mg PO daily) # Onychomycosis - takes lamisil 250mg PO daily (hold) # Tobacco dependency # Hx of colon polyps # s/p R TKA # s/p drug eluding cardiac stents # care home use of anticoagulant Hospitalization details: # FEN: Oral fluids, electrolytes stable, ADA/heart healthy diet # PPX: continue warfarin, pantoprazole # Code status: FULL CODE # Emergency contact: DaughterSachi [phone] # Disposition: Will maintain inpatient status today for further diuresis and IV steroids for CHF and COPD, respectively. Anticipate possible discharge home tomorrow if continues to improve clinically. Patient has follow-up appointment scheduled with cardiology on 01/24, would recommend he keep this appointment.
[2021-01-21] MEDS ORDERED: Warfarin 2.5 MG Tab PO ONE (18:00)
[2021-01-21] MEDS ORDERED: Furosemide 40 MG/4 ML VIAL IVPUSH SCH (21:00)
[2021-01-21] MEDS: Pantoprazole 20 MG Tab, Delayed Release PO SCH (21:15)
[2021-01-22] MEDS: methylPREDNISolone Sodium Succinate 125 MG/2 ML SDV IVPUSH SCH (02:01)
[2021-01-22 08:25] LABS: ANION GAP 14.7 mmol/L (5-15); CHLORIDE,CL 105 mmol/L (98-107); SODIUM,NA 142 mmol/L (136-145)
[2021-01-22] MEDS ORDERED: Furosemide 40 MG/4 ML VIAL IVPUSH SCH (09:00)
[2021-01-22] MEDS: Insulin Aspart 100 Units/ML 3 ML Pen SUBCUT SCH ×2 (09:06→12:12)
[2021-01-22] MEDS: Isosorbide Mononitrate 30 MG Tab.ER PO SCH (09:08)
[2021-01-22] MEDS: amLODIPine 5 MG Tab PO SCH (09:08)
[2021-01-22] MEDS: Metoprolol Tartrate 50 MG Tab PO SCH (09:08)
[2021-01-22] MEDS: metFORMIN 500 MG Tab PO SCH (09:09)
[2021-01-22] MEDS: Aspirin 81 MG Tab.EC PO SCH (09:09)
[2021-01-22] MEDS: atorvaSTATin 40 MG Tab PO SCH (09:09)
[2021-01-22] MEDS: Tiotropium Bromide 4 GM Inhalation Spray (2.5mcg/1 dose; 10 doses) INH SCH (09:09)
[2021-01-22] MEDS: Gabapentin 300 MG Cap PO SCH (09:09)
[2021-01-22] MEDS: Sodium Chloride 0.65% Nasal Spray 45 ML Bottle NAS PRN (09:30)
--- NOTE | 2021-01-22 11:12 | PCM.DCSUM1 ---
Discharge Summary - Hospital Course Free Text/Narrative:: Date of admission: 01/19/21 Date of discharge: 01/22/21 Admission diagnoses: # Acute on chronic congestive heart failure; BNP 429, pleural effusion and edema per chest CT results # Acute hypoxic respiratory failure; O2 demands decreasing from 4.5L on admission to 2L this morning # COPD - On 3L O2 at night at baseline - IV solumedrol given in hospital, tapering dose of prednisone upon discharge - Continue spiriva - Continue albuterol inhaler PRN - Incentive spirometry 10x/hr while awake - 2000ml this morning Discharge diagnoses: # HFpEF - bumex 2mg daily; resume upon dsicharge # CAD - continue metoprolol tartrate 50mg BI; isosorbide 60mg PO daily, aspirin 81mg daily # Hx of NSTEMI # HTN - Amlodipine 10mg PO daily # PAF - continue warfarin dosing per pharmacy; INR 3.0 today - likely related to hypoalbuminemia (albumin 2.61); warfarin dosing per [facility] as prior # s/p AAA repair # Hx of respiratory failure # DM without complication - resume victoza 1.8mg daily, continue metformin 1000mg PO BID # HLD - Continue atorvastatin 40mg PO daily # Bilateral knee pain - continue gabapentin 300mg PO TID # Dyspepsia - resume omeprazole 20mg PO daily # Onychomycosis - resume lamisil 250mg PO daily # Tobacco dependency # Hx of colon polyps # s/p R TKA # s/p drug eluding cardiac stents # [facility] use of anticoagulant Procedures: Laceration repair to the plantar aspect of the R 5th digit on 01/23/[address] Blake HPI summary: Mo is a 65yM patient who presented to the ER with c/o of dyspnea and chest pain over the last 48 hours. Patient has a long history of COPD and cardiac issues. He is on home oxygen at night at 3L. He denies any diaphoresis. He feels he is had some increased swelling in his lower legs. He denies any radiation of his chest pain to his shoulder back jaw or abdomen. No nausea or vomiting. No recent respiratory infections. He was recently seen by his package winder. He had a CT scan noncontrast on 12/29/2020. CT findings showed chronic extensive changes along paronychia with an overall findings appearing stable. He has stable pulmonary nodules. Showing severe coronary artery calcifications. Most recent cardiac nuclear study dated is 6 on 06/12/20. He continues to be a current a smoker half a pack a day. He has smoked for the past 40+ years. He was at 1 time a 2 to 3 pack a day smoker. Past medical history is significant for non-ST elevated [place], Hypertension, diabetes, morbid obesity, congestive heart failure with preserved ejection fraction, Respiratory failure, hyperlipidemia. Postsurgical history includes drug-eluting coronary stent placement, AAA repair, long-term current use of anticoagulation, paradoxical atrial fibrillation. Patient had cardiac cath in June,: RCA 80% stenosis and double vessel CAD involving the Left main, LAD and LCx and medical management was recommended at that time. ED course: O2 saturation upon arrival was at 58%. He was placed on a nonrebreather at 10 L and O2 saturations improved to 96%.CXR indicated moderate CHF exacerbation, CT indicated centrillobular emphysema, underlying interstitial pattern - likely fibrosis, small R pleural effusion, trace L pleural effusion with edema suspected. WBC 7.36, Hgb 10.7, Plt 275. Na 147, K 3.9, BUN 20, Creatinine 1.02, Glu 204, BNP 429. EKG: NSR w PAC's, Prolonged QT - NE 196ms, QRS 102ms, QTc 492. Trop negative. Hospital course: 01/19/21: Patient c/o increased SOB, worsened edema to his legs, increased difficulty lying flat the past few nights and "bubbly cough." Denies fever, chills. No increased wheezing. Crackles to bilateral bases, +2 edema to bilateral lower extremities. O2 adequate on 4-5L, would avoid flow rates greater than this if possible due to COPD and concern of hypercapnia. pH 7.38, CO2 42, HCO3 25. Suspect CHF exacerbation is likely etiology of symptoms rather than COPD based on HPI, imaging results and exam findings. Will plan to diurese patient with IV lasix. Patient had increased bumex dosing for 3 days approxim ately two weeks ago and is scheduled to follow up with cardiology [employer] [employer] on 01/24. Patient continues to smoke and does not want a nicotine patch. He has significant clubbing of his fingertips which are rather dusky. 01/20/21: No calls overnight, patient slept well. Cough, SOB improving, patient able to lie flatter in bed. Lung sounds diminished, wheezy. Edema improved this am, +1 bilaterally. Remains on 4L O2 to maintain O2 sat > 88%. Hemodynamically stable, afebrile. WBC 6.45, Hgb 10.2, Plt 270. Na 148, K 3.9, Cl 108, CO2 33.5, BUN 15, Creatinine 1.05. Will continue to diurese patient for fluid overload, CHF exacerbation. Will add solumedrol today due to wheezing and continued increased O2 demands as only on O2 at night at home at baseline. Diuresing well with IV lasix, K stable. 01/21/21: Breathing improved this morning, less wheezing with steroids on board. Less peripheral edema, able to lie flatter without dyspnea. Ambulating in room without dyspnea. Lung sounds improved, continues to have mild wheeze and rhonchi. Edema improved to lower extremities, now non-pitting to +1. Will decrease lasix to 20mg IV BID starting this evening, patient was given 40mg IV this am. BUN slightly increased to 20. Hemodynamically acceptable, afebrile. Oxygen demands decreasing. WBC 6.46, Hgb 10.4, Plt 282. Na 142, K 4.3, BUN 20, Creatinine 1.01, Glu 273, CRP 2.8, albumin 2.61. 01/22/21: Patient denies SOB this morning, wheezing has improved. IS to 2000ml. Lower supplemental oxygen requirements. Patient received a laceration to the plantar aspect of the R 5th digit this morning while obtaining his weight on the scale. Will consult with Dr Blake for possible sutures given location of laceration. Lung sounds diminished, no crackles, mild scattered wheezing. Low er extremity edema improved, residual trace edema this morning. Hemodynamically acceptable, remains afebrile. WBC 9.27, Hgb 10.9, Plt 312, INR 3.0. Na 142, K 5.3, BUN 29, Creatinine 1.10, CRP 1.4. Patient continuing to require a minimal amount of supplemental oxygen during the day, patient is chronically oxygen dependent at night. Clinically much improved today, will plan to discharge patient home with close follow-up by PCP. Discharge and follow-up recommendations: - Discharge to home per self care - Home oxygen (already in place) to maintain O2 sat > 88% given COPD - Fluid restriction of 2000ml daily as well as monitoring of sodium intake - Patient advised to obtain his weight daily in the morning and notify the clinic of weight gain of > 3# in a day or 5# in a week. - Patient to continue incentive spirometry 10x/hr while awake - Patient to keep sutures to R 5th digit clean and dry, sutures to be removed in approximately [address] Blake - New medications at discharge: Tapering dosing of prednisone 40mg PO x2 days, 30mg PO x 2 days, 20mg PO x 2 days, 10mg PO x 2 days, then stop. - Follow-up with cardiology in [place] on 01/24/21 as previously scheduled and with Dr Morales at [facility] on 01/30/21 at 0900. - Discharge Data Discharge Date: 01/22/21 Discharge Disposition: Home, Self-Care 01 Condition: Good - Referral to Home Health Primary Care Physician: Andrew Vega MD - Patient Summary/Data Consults: Consultations 01/19/21 12:24 Consult to Case Management/Theatre Program Director [CONS] Routine - Patient Instructions Diet: Heart Healthy Diet Fluid Restriction: 2000 mL Driving: Do Not Drive Showering/Bathing: May Shower Wound/Incision Care: Keep Operative Site/Wound Site Clean and Dry Notify Provider of: Fever, Increased Pain, Swelling and Redness Other/Special Instructions: - Follow-up in [facility] at the end of this week or early next week for hospital followup and in 14 days for suture removal. - Check your oxygen at home and maintain > 88%. - Continue incentive spirometry 10x/hr while awake. - Check your weight daily and notify the clinic of weight gain of 3# in one day or 5# in one week. - Do not drink more than 2000ml of fluids per day. - Keep cardiology appointment scheduled for 01/24. - Discharge Plan *PRESCRIPTION DRUG MONITORING PROGRAM REVIEWED*: Not Applicable *COPY OF PRESCRIPTION DRUG MONITORING REPORT IN PATIENT [place]: Not Applicable Home Medications: Home Meds atorvaSTATin [Lipitor] 40 mg PO DAILY 10/01/14 [History] metFORMIN [Glucophage] 1,000 mg PO BID 10/01/14 [History] Gabapentin [Neurontin] 300 mg PO TID 05/02/20 [History] Metoprolol Tartrate 50 mg PO BID 05/02/20 [History] Omeprazole 20 mg PO QAM 05/02/20 [History] Terbinafine HCl 250 mg PO DAILY 05/02/20 [History] amLODIPine Besylate [Amlodipine Besylate] 10 mg PO DAILY 05/02/20 [History] Albuterol [Ventolin HFA] 2 puff INH Q4H PRN 01/19/21 [History] Aspirin [Aspirin EC] 81 mg PO DAILY 01/19/21 [History] Bumetanide [Bumex] 2 mg PO DAILY 01/19/21 [History] Hydrocodone/Acetaminophen [HYDROcodone-Acetaminophen 10-325 MG] 1 each PO BID PRN 01/19/21 [History] Isosorbide Mononitrate [Isosorbide Mononitrate ER] 60 mg PO DAILY 01/19/21 [History] Liraglutide [Victoza] 1.8 mg SQ DAILY 01/19/21 [History] Kyligcya-Aakzkzwav-Hzanlmyhpivbit (Cortisporin) 4 drop EARRT TID 01/19/21 [History] Nitroglycerin [Nitrostat] 0.4 mg SL ASDIRECTED PRN 01/19/21 [History] Olopatadine [Patanol 0.1% Ophth Soln] 1 drop EYEBOTH BID PRN 01/19/21 [History] Umeclidinium [place] [Incruse Ellipta] 1 puff IN DAILY 01/19/21 [History] Warfarin Sodium [Jantoven] 5 mg PO ASDIRECTED 01/19/21 [History] Pharmacy to Dose - Warfarin 0 dose PO ASDIRECTED each 01/22/21 [Rx] predniSONE 40 mg PO .Daily Taper tablet 01/22/21 [Rx] Oxygen Therapy Mode: Nasal Cannula Oxygen Flow Rate (L/min): 3 (at night, during the day as needed ) Maintain SpO2% greater than: 88 Referrals: Andrew Vega MD [Primary Care Provider] - (Please call the [facility] to schedule a follow-up appointment with Dr Morales late this week.) - Discharge Summary/Plan Comment DC Time >30 min.: Yes Total # of Minutes for Discharge Time: 35 - General Info Date of Service: 01/22/21 Functional Status: Reports: Pain Controlled, Tolerating Diet, Ambulating, Urinating, Incentive Spirometry (2500ml). Denies: New Symptoms - Review of Systems General: Reports: No Symptoms HEENT: Reports: No Symptoms Pulmonary: Reports: Cough, Wheezing (improved). Denies: Shortness of Breath, Pleuritic Chest Pain, Sputum Cardiovascular: Reports: Dyspnea on Exertion, Edema (minimal swelling today) Gastrointestinal: Reports: No Symptoms Genitourinary: Reports: No Symptoms Musculoskeletal: Reports: No Symptoms Skin: Reports: Other (patient cut the underside of his R little toe on the scale this morning) Neurological: Reports: No Symptoms Psychiatric: Reports: No Symptoms - Patient Data Vitals - Most Recent: Last Vital Signs Temp 97.2 F 01/22/21 06:49 Pulse 80 01/22/21 09:08 Resp 20 01/22/21 06:49 BP 131/64 01/22/21 09:08 Pulse Ox 94 L 01/22/21 09:00 Weight - Most Recent: 270 lb 7 oz I&O - Last 24 hours: Intake & Output 01/21/21 01/22/21 01/22/21 22:59 06:59 14:59 Intake Total 1000 500 Output Total 550 1000 Balance 450 -500 Lab Results - Last 24 hrs: Laboratory Results - last 24 hr 01/21/21 01/21/21 01/21/21 Range/Units 11:29 17:35 21:03 WBC (5.00-10.00) 10^3/uL RBC (4.50-6.00) 10^6/uL Hgb (13.0-17.0) g/dL Hct (40.0-52.0) % MCV (82.0-92.0) fL MCH (27.0-31.0) pg MCHC (32.0-36.0) g/dL RDW (11.5-14.5) % Plt Count (150-400) 10^3/uL MPV (7.4-10.4) fL Immature Gran % (Auto) (0.0-5.0) % Neut % (Auto) (50.0-70.0) % Lymph % (Auto) (20.0-40.0) % [place] % (Auto) (2.0-8.0) % Eos % (Auto) (1.0-3.0) % Baso % (Auto) (0.0-1.0) % Neut # (Auto) (2.50-7.00) 10^3/uL Lymph # (Auto) (1.00-4.00) 10^3/uL [place] # (Auto) (0.10-0.80) 10^3/uL Eos # (Auto) (0.10-0.30) 10^3/uL Baso # (Auto) (0.00-0.10) 10^3/uL Immature Gran # (Auto) (0.00-0.50) 10^3/uL PT (9.2-11.2) SEC INR (0.9-1.1) Sodium (136-145) mmol/L Potassium (3.5-5.1) mmol/L Chloride (98-107) mmol/L Carbon Dioxide (21.0-32.0) mmol/L Anion Gap (5-15) mmol/L BUN (7-18) mg/dL Creatinine (0.51-1.17) mg/dL Est Cr Clr Drug Dosing mL/min Estimated GFR (MDRD) mL/min Glucose (70-140) mg/dL POC Glucose 366 H 255 H 354 H (70-140) mg/dL Calcium (8.7-10.3) mg/dL Total Bilirubin (0.2-1.0) mg/dL AST (15-37) U/L ALT (14-63) U/L Alkaline Phosphatase (46-116) U/L C-Reactive Protein (0.0-0.9) mg/dL Total Protein (6.4-8.2) g/dL Albumin (3.40-5.00) g/dL 01/22/21 01/22/21 01/22/21 Range/Units 07:15 07:15 07:15 WBC 9.27 (5.00-10.00) 10^3/uL RBC 4.21 L (4.50-6.00) 10^6/uL Hgb 10.9 L (13.0-17.0) g/dL Hct 35.8 L (40.0-52.0) % MCV 85.0 (82.0-92.0) fL MCH 25.9 L (27.0-31.0) pg MCHC 30.4 L (32.0-36.0) g/dL RDW 15.9 H (11.5-14.5) % Plt Count 312 (150-400) 10^3/uL MPV 9.6 (7.4-10.4) fL Immature Gran % (Auto) 0.2 (0.0-5.0) % Neut % (Auto) 87.1 H (50.0-70.0) % Lymph % (Auto) 10.1 L (20.0-40.0) % [place] % (Auto) 2.5 (2.0-8.0) % Eos % (Auto) 0.0 L (1.0-3.0) % Baso % (Auto) 0.1 (0.0-1.0) % Neut # (Auto) 8.07 H (2.50-7.00) 10^3/uL Lymph # (Auto) 0.94 L (1.00-4.00) 10^3/uL [place] # (Auto) 0.23 (0.10-0.80) 10^3/uL Eos # (Auto) 0.00 L (0.10-0.30) 10^3/uL Baso # (Auto) 0.01 (0.00-0.10) 10^3/uL Immature Gran # (Auto) 0.02 (0.00-0.50) 10^3/uL PT 29.8 H (9.2-11.2) SEC INR 3.0 H (0.9-1.1) Sodium 142 (136-145) mmol/L Potassium 5.3 H (3.5-5.1) mmol/L Chloride 105 (98-107) mmol/L Carbon Dioxide 27.6 (21.0-32.0) mmol/L Anion Gap 14.7 (5-15) mmol/L BUN 29 H (7-18) mg/dL Creatinine 1.10 (0.51-1.17) mg/dL Est Cr Clr Drug Dosing 81.10 mL/min Estimated GFR (MDRD) > 60 mL/min Glucose 283 H (70-140) mg/dL POC Glucose (70-140) mg/dL Calcium 8.7 (8.7-10.3) mg/dL Total Bilirubin 0.3 (0.2-1.0) mg/dL AST 13 L (15-37) U/L ALT 23 (14-63) U/L Alkaline Phosphatase 86 (46-116) U/L C-Reactive Protein 1.4 H (0.0-0.9) mg/dL Total Protein 7.1 (6.4-8.2) g/dL Albumin 2.70 L (3.40-5.00) g/dL 01/22/21 Range/Units 07:54 WBC (5.00-10.00) 10^3/uL RBC (4.50-6.00) 10^6/uL Hgb (13.0-17.0) g/dL Hct (40.0-52.0) % MCV (82.0-92.0) fL MCH (27.0-31.0) pg MCHC (32.0-36.0) g/dL RDW (11.5-14.5) % Plt Count (150-400) 10^3/uL MPV (7.4-10.4) fL Immature Gran % (Auto) (0.0-5.0) % Neut % (Auto) (50.0-70.0) % Lymph % (Auto) (20.0-40.0) % [place] % (Auto) (2.0-8.0) % Eos % (Auto) (1.0-3.0) % Baso % (Auto) (0.0-1.0) % Neut # (Auto) (2.50-7.00) 10^3/uL Lymph # (Auto) (1.00-4.00) 10^3/uL [place] # (Auto) (0.10-0.80) 10^3/uL Eos # (Auto) (0.10-0.30) 10^3/uL Baso # (Auto) (0.00-0.10) 10^3/uL Immature Gran # (Auto) (0.00-0.50) 10^3/uL PT (9.2-11.2) SEC INR (0.9-1.1) Sodium (136-145) mmol/L Potassium (3.5-5.1) mmol/L Chloride (98-107) mmol/L Carbon Dioxide (21.0-32.0) mmol/L Anion Gap (5-15) mmol/L BUN (7-18) mg/dL Creatinine (0.51-1.17) mg/dL Est Cr Clr Drug Dosing mL/min Estimated GFR (MDRD) mL/min Glucose (70-140) mg/dL POC Glucose 291 H (70-140) mg/dL Calcium (8.7-10.3) mg/dL Total Bilirubin (0.2-1.0) mg/dL AST (15-37) U/L ALT (14-63) U/L Alkaline Phosphatase (46-116) U/L C-Reactive Protein (0.0-0.9) mg/dL Total Protein (6.4-8.2) g/dL Albumin (3.40-5.00) g/dL Med Orders - Current: Current Medications Acetaminophen (Acetaminophen 325 Mg Tab) 650 mg PO Q4H PRN PRN Reason: Pain Last Admin: 01/21/21 03:28 Dose: 650 mg Documented by: Albuterol (Albuterol 8 Gm Inhaler) 0 gm INH Q4H PRN PRN Reason: SOB,wheezing,cough Amlodipine Besylate (Amlodipine 5 Mg Tab) 10 mg PO DAILY [facility] Last Admin: 01/22/21 09:08 Dose: 10 mg Documented by: Aspirin (Aspirin 81 Mg Tab.Ec) 81 mg PO DAILY [facility] Last Admin: 01/22/21 09:09 Dose: 81 mg Documented by: Atorvastatin Calcium (Atorvastatin 40 Mg Tab) 40 mg PO DAILY [facility] Last Admin: 01/22/21 09:09 Dose: 40 mg Documented by: Dextrose/Water (50% Dextrose In Water 50 Ml Syringe) 50 ml IVPUSH ASDIRECTED PRN PRN Reason: Hypoglycemia Furosemide (Furosemide 40 Mg/4 Ml Vial) 20 mg IVPUSH BIDDIURETIC [facility] Last Admin: 01/22/21 09:10 Dose: 20 mg Documented by: Gabapentin (Gabapentin 300 Mg Cap) 300 mg PO TID [facility] Last Admin: 01/22/21 09:09 Dose: 300 mg Documented by: Glucagon (Glucagon,Human Recombinant 1 Mg Vial) 1 mg IM ASDIRECTED PRN PRN Reason: Hypoglycemia Insulin Aspart (Insulin Aspart 100 Units/Ml 3 Ml Pen) 0 unit SUBCUT WITHMEALSANDBED [facility]; Protocol Last Admin: 01/22/21 09:06 Dose: 6 unit Documented by: Isosorbide Mononitrate (Isosorbide Mononitrate 30 Mg Tab.Er) 60 mg PO DAILY [facility] Last Admin: 01/22/21 09:08 Dose: 60 mg Documented by: Metformin HCl (Metformin 500 Mg Tab) 1,000 mg PO BID [facility] Last Admin: 01/22/21 09:09 Dose: 1,000 mg Documented by: Methylprednisolone Sodium Succinate (Methylprednisolone Sodium Succinate 125 Mg/2 Ml Sdv) 40 mg IVPUSH Q8H [facility] Metoprolol Tartrate (Metoprolol Tartrate 50 Mg Tab) 50 mg PO BID [facility] Last Admin: 01/22/21 09:08 Dose: 50 mg Documented by: Pantoprazole Sodium (Pantoprazole 20 Mg Tab, Delayed Release) 20 mg PO BEDTIME [facility] Last Admin: 01/21/21 21:15 Dose: 20 mg Documented by: Sodium Chloride (Sodium Chloride 0.9% 10 Ml Syringe) 10 ml FLUSH Q8HR PRN PRN Reason: keep vein open Last Admin: 01/19/21 05:33 Dose: 10 ml Documented by: Sodium Chloride (Sodium Chloride 0.65% Nasal [place] 45 Ml Bottle) 0 ml OLIVIER Q6H PRN PRN Reason: Congestion Last Admin: 01/22/21 09:30 Dose: 1 spray Documented by: Tiotropium [place] (Tiotropium [place] 4 Gm Inhalation [place] (2.5mcg/1 Dose; 10 Doses)) 0 gm INH DAILY [facility] Last Admin: 01/22/21 09:09 Dose: 2 inhalation Documented by: Warfarin Sodium (Pharmacy To Dose - Warfarin) 0 dose PO ASDIRECTED [facility] Warfarin Sodium (Warfarin 2.5 Mg Tab) 2.5 mg PO ONETIME ONE Stop: 01/22/21 18:01 Discontinued Medications Albuterol/Ipratropium (Albuterol/Ipratropium 3.0-0.5 Mg/3 Ml Neb Soln) 3 ml NEB ONETIME ONE Stop: 01/19/21 05:41 Last Admin: 01/19/21 05:51 Dose: 3 ml Documented by: Aspirin (Aspirin 81 Mg Tab.Chew) 324 mg PO ONETIME ONE Stop: 01/19/21 05:18 Last Admin: 01/19/21 05:25 Dose: 324 mg Documented by: Furosemide (Furosemide 40 Mg/4 Ml Vial) 40 mg IVPUSH BID [facility] Last Admin: 01/19/21 10:03 Dose: 40 mg Documented by: Furosemide (Furosemide 40 Mg/4 Ml Vial) 40 mg IVPUSH BIDDIURETIC [facility] Last Admin: 01/21/21 08:24 Dose: 40 mg Documented by: Furosemide (Furosemide 40 Mg/4 Ml Vial) 20 mg IVPUSH BID [facility] Last Admin: 01/21/21 21:10 Dose: 20 mg Documented by: Methylprednisolone Sodium Succinate (Methylprednisolone Sodium Succinate 125 Mg/2 Ml Sdv) 40 mg IVPUSH Q8H [facility] Last Admin: 01/22/21 02:01 Dose: 40 mg Documented by: Warfarin Sodium (Warfarin 2.5 Mg Tab) 2.5 mg PO MoWeFr [facility] Last Admin: 01/19/21 17:30 Dose: 2.5 mg Documented by: Warfarin Sodium (Warfarin 5 Mg Tab) 5 mg PO SuTuThSa [facility] Last Admin: 01/20/21 17:56 Dose: 5 mg Documented by: Warfarin Sodium (Warfarin 2.5 Mg Tab) 2.5 mg PO ONETIME ONE Stop: 01/21/21 18:01 Last Admin: 01/21/21 17:44 Dose: 2.5 mg Documented by: - Exam Quality Assessment: Reports: Supplemental Oxygen (on room air on rounds, uses at night at baseline), DVT Prophylaxis (home coumadin) General: Reports: Alert, Oriented, Cooperative, No Acute Distress HEENT: Reports: Pupils Equal, Mucous Membr. Moist/Foley Neck: Reports: Supple, Trachea Midline Lungs: Reports: Decreased Breath Sounds, Rhonchi (fine), Wheezing (fine) Cardiovascular: Reports: Regular Rate, Regular Rhythm, No Murmurs GI/Abdominal Exam: Normal Bowel Sounds, Soft, Non-Tender, No Distention (Male) Exam: Deferred Rectal (Males) Exam: Deferred Back Exam: Reports: Normal Inspection, Full Range of Motion Extremities: Normal Inspection, Normal Range of Motion, Non-Tender, Normal Capillary Refill, Pedal Edema (trace residual ) Skin: Reports: Warm, Dry, Other (Laceration to plantar aspect of R 5th digit to be sutured by Dr Blake) Neurological: Reports: No New Focal Deficit Psy/Mental Status: Reports: Alert, Normal Affect, Normal Mood
[2021-01-22] MEDS ORDERED: predniSONE 10 MG Tab PO SCH (11:15)
[2021-01-22 12:29] VITALS: BP 158/80; PULSE 73
[2021-01-22] MEDS ORDERED: methylPREDNISolone Sodium Succinate 125 MG/2 ML SDV IVPUSH SCH (15:00)
[2021-01-22] MEDS ORDERED: Warfarin 2.5 MG Tab PO ONE (18:00)
--- NOTE | 2021-01-23 07:23 | OR ---
DATE OF SURGERY: 01/22/2021 SURGEON: Tk Melendez MD PREOPERATIVE DIAGNOSIS: Laceration of the right small toe on the plantar aspect, 1.5 inches. POSTOPERATIVE DIAGNOSIS: Laceration of the right small toe on the plantar aspect, 1.5 inches. OPERATION PERFORMED: Suture laceration on the bottom of the right fifth toe. PROCEDURE: Informed consent was obtained with the patient regarding this procedure. All possible complications were discussed. He wished to proceed. He was kept in the supine position. Skin prep was performed with ChloraPrep. Xylocaine 1% plain was used for anesthesia. We then used 4-0 nylon sutures to suture the laceration. Sterile dressings were applied. The patient tolerated the procedure well. He is advised to have the sutures removed in 12 days. The patient understands. /[id number]/MODL
== END 2021-01-22 13:48 | disposition home or self-care (01) | DRG 291 ==
LOC: KA.ED 04:53 → UNDOADMIN 08:44 → KA.MS 08:44
PROVIDERS: ADMIT Physician Assistant; ATTEND Nurse Practitioner Family
PROC: 0HQMXZZ Repair Right Foot Skin, External Approach (ICD-10-PCS; principal; 2021-01-22)
DX: J44.1 Chronic obstructive pulmonary disease with (acute) exacerbation (principal); I50.9 Heart failure, unspecified; R09.02 Hypoxemia; I11.0 Hypertensive heart disease with heart failure; I10 Essential (primary) hypertension; I50.33 Acute on chronic diastolic (congestive) heart failure; J96.01 Acute respiratory failure with hypoxia; I25.10 Atherosclerotic heart disease of native coronary artery without angina pectoris; E78.5 Hyperlipidemia, unspecified; M25.561 Pain in right knee; M25.562 Pain in left knee; Z96.651 Presence of right artificial knee joint; R10.13 Epigastric pain; B35.1 Tinea unguium; E78.00 Pure hypercholesterolemia, unspecified; K21.9 Gastro-esophageal reflux disease without esophagitis; G89.29 Other chronic pain; M54.9 Dorsalgia, unspecified; E66.9 Obesity, unspecified; E11.9 Type 2 diabetes mellitus without complications; F17.210 Nicotine dependence, cigarettes, uncomplicated; E66.01 Morbid (severe) obesity due to excess calories; S91.114A Laceration without foreign body of right lesser toe(s) without damage to nail, initial encounter; J43.2 Centrilobular emphysema; Z20.822 Contact with and (suspected) exposure to COVID-19; Z79.01 Long term (current) use of anticoagulants; Z95.5 Presence of coronary angioplasty implant and graft; I25.2 Old myocardial infarction; Z79.84 Long term (current) use of oral hypoglycemic drugs; Z79.899 Other long term (current) drug therapy; Z79.82 Long term (current) use of aspirin; Z68.32 Body mass index [BMI] 32.0-32.9, adult; Z91.041 Radiographic dye allergy status; Z99.81 Dependence on supplemental oxygen; X58.XXXA Exposure to other specified factors, initial encounter
CPT/HCPCS: 36415; 36600; 71046; 71250; 80048; 80053; 82803; 82947; 83735; 83880; 84100; 84484; 85025; 85610; 86140; 93005; 93010; 94640; 99284; 99285-25; A9270-GY; J1815-GY; J1940; J2930; J7620-GY; U0002

== ENCOUNTER 2022-04-04 03:50 | Inpatient (IN) | payer MEDICARE, MEDICAID ==
[2022-04-04] MEDS ORDERED: Nitroglycerin 0.4 MG Tab.SL SL ONE (04:10)
[2022-04-04] MEDS ORDERED: Sodium Chloride 0.9% 1,000 ML ONE (04:18)
[2022-04-04] MEDS ORDERED: Sodium Chloride 0.9% 10 ML Syringe FLUSH PRN (04:23)
[2022-04-04] MEDS ORDERED: Nitroglycerin 2% Oint 1 GM UD Packet TOP ONE (04:35)
[2022-04-04 04:55] LABS: ANION GAP 11.4 mmol/L (5-15); CHLORIDE,CL 102 mmol/L (98-107); SODIUM,NA 138 mmol/L (136-145)
[2022-04-04 04:56] LABS: ESTIMATED GFR 65 mL/min (>=60)
[2022-04-04 05:17] LABS: PTT,PARTIAL THROMBOPLSTIN TIME 45.5 SEC (22.8-31.4)
[2022-04-04] MEDS ORDERED: Morphine 4 MG/ML Syringe IVPUSH ONE (05:28)
[2022-04-04] MEDS ORDERED: Morphine 4 MG/ML Syringe ONE (05:29)
[2022-04-04] MEDS ORDERED: Furosemide 40 MG/4 ML VIAL IVPUSH ONE (05:30)
[2022-04-04] MEDS ORDERED: Azithromycin 500 MG in Sodium Chloride 0.9% 250 ML IV ONE (05:30)
[2022-04-04] MEDS ORDERED: cefTRIAXone 1 GM Vial IVPUSH ONE (05:30)
[2022-04-04] MEDS ORDERED: Acetaminophen 325 MG Tab PO PRN (10:48)
[2022-04-04] MEDS ORDERED: Albuterol 8 GM Inhaler INH PRN (10:48)
[2022-04-04] MEDS ORDERED: Warfarin 5 MG Tab PO SCH (11:00)
[2022-04-04] MEDS ORDERED: UMECLIDIN INH SCH (11:00)
[2022-04-04] MEDS ORDERED: FLUTICASONE INH SCH (11:00)
[2022-04-04] MEDS ORDERED: [UNRECOGNIZED DRUG - OTHER] INH SCH (11:00)
[2022-04-04] MEDS ORDERED: VILANTER INH SCH (11:00)
[2022-04-04] MEDS: Ferrous Sulfate 325 MG Tab PO SCH (11:46)
[2022-04-04] MEDS: amLODIPine 5 MG Tab PO SCH (11:46)
[2022-04-04] MEDS: metFORMIN 500 MG Tab PO SCH ×2 (11:46→18:22)
[2022-04-04] MEDS: Metoprolol Tartrate 50 MG Tab PO SCH ×2 (11:46→21:25)
[2022-04-04] MEDS: Acetaminophen/HYDROcodone 325-10 MG Tab PO PRN (12:37)
[2022-04-04] MEDS ORDERED: Glucagon,Human Recombinant 1 MG Vial IM PRN (13:13)
[2022-04-04] MEDS ORDERED: 50% Dextrose in Water 50 ML Syringe IVPUSH PRN (13:13)
[2022-04-04] MEDS: Gabapentin 300 MG Cap PO SCH ×2 (14:16→21:26)
[2022-04-04] MEDS ORDERED: Albuterol 8 GM Inhaler **OWN MED INH PRN (16:30)
[2022-04-04] MEDS: Insulin Lispro 100 Unit/ML 3 ML KwikPen SUBCUT SCH (18:23)
[2022-04-04] MEDS ORDERED: Insulin Glargine,Hum.Rec.Anlog 100 UNIT/ML 3 ML Pen SUBCUT SCH (19:00)
[2022-04-04] MEDS ORDERED: atorvaSTATin 40 MG Tab PO SCH (21:00)
[2022-04-04] MEDS: Formoterol/Mometasone 100-5 MCG 8.8 GM Inhaler IH SCH (21:27)
[2022-04-05] MEDS: Acetaminophen/HYDROcodone 325-10 MG Tab PO PRN (01:11)
[2022-04-05] MEDS ORDERED: cefTRIAXone 1 GM Vial IVPUSH SCH (06:00)
[2022-04-05] MEDS ORDERED: Azithromycin 500 MG in Sodium Chloride 0.9% 250 ML IV SCH (06:00)
[2022-04-05] MEDS: Insulin Lispro 100 Unit/ML 3 ML KwikPen SUBCUT SCH ×2 (08:15→12:01)
[2022-04-05] MEDS: metFORMIN 500 MG Tab PO SCH (08:15)
[2022-04-05] MEDS: amLODIPine 5 MG Tab PO SCH (08:19)
[2022-04-05] MEDS: Metoprolol Tartrate 50 MG Tab PO SCH (08:21)
[2022-04-05] MEDS: Ferrous Sulfate 325 MG Tab PO SCH (08:21)
[2022-04-05] MEDS: Gabapentin 300 MG Cap PO SCH (08:23)
[2022-04-05] MEDS ORDERED: TRELEGY ELLIPTA INH SCH (09:00)
[2022-04-05] MEDS ORDERED: Aspirin 81 MG Tab.EC PO SCH (09:00)
[2022-04-05] MEDS ORDERED: Omeprazole 20 MG Cap.CR PO SCH (09:00)
[2022-04-05] MEDS ORDERED: Tiotropium Bromide 4 GM Inhalation Spray (2.5mcg/1 dose; 10 doses) INH SCH (09:00)
[2022-04-05] MEDS ORDERED: Isosorbide Mononitrate 30 MG Tab.ER PO SCH (09:00)
[2022-04-05] MEDS: Formoterol/Mometasone 100-5 MCG 8.8 GM Inhaler IH SCH (11:06)
[2022-04-05 13:33] VITALS: BP 141/69; PULSE 59
[2022-04-05] MEDS ORDERED: Warfarin 2.5 MG Tab PO ONE (18:00)
== END 2022-04-05 13:14 | disposition home or self-care (01) | DRG 193 ==
LOC: KA.ED 03:50 → KA.MS 05:40 → OBSVTOIN 05:40 → KA.MS 07:23 → UNDOADMOB 07:23
PROVIDERS: ADMIT Physician Assistant Medical; ATTEND Family Medicine
DX: J18.9 Pneumonia, unspecified organism (principal); J96.21 Acute and chronic respiratory failure with hypoxia; I50.32 Chronic diastolic (congestive) heart failure; J44.0 Chronic obstructive pulmonary disease with (acute) lower respiratory infection; I25.10 Atherosclerotic heart disease of native coronary artery without angina pectoris; E66.01 Morbid (severe) obesity due to excess calories; R07.89 Other chest pain; I48.0 Paroxysmal atrial fibrillation; J84.10 Pulmonary fibrosis, unspecified; I11.0 Hypertensive heart disease with heart failure; E78.5 Hyperlipidemia, unspecified; D64.9 Anemia, unspecified; B35.1 Tinea unguium; F17.210 Nicotine dependence, cigarettes, uncomplicated; M25.562 Pain in left knee; M25.561 Pain in right knee; R10.13 Epigastric pain; Z96.651 Presence of right artificial knee joint; I50.9 Heart failure, unspecified; I48.91 Unspecified atrial fibrillation; I25.2 Old myocardial infarction; J44.9 Chronic obstructive pulmonary disease, unspecified; I25.118 Atherosclerotic heart disease of native coronary artery with other forms of angina pectoris; E11.9 Type 2 diabetes mellitus without complications; Z68.38 Body mass index [BMI] 38.0-38.9, adult; E66.9 Obesity, unspecified; K21.9 Gastro-esophageal reflux disease without esophagitis; Z99.81 Dependence on supplemental oxygen; Z79.4 Long term (current) use of insulin; Z79.01 Long term (current) use of anticoagulants; Z79.82 Long term (current) use of aspirin; Z79.899 Other long term (current) drug therapy; E78.00 Pure hypercholesterolemia, unspecified; Z95.5 Presence of coronary angioplasty implant and graft
CPT/HCPCS: 36415; 71045; 80048; 80053; 82947; 83880; 84484; 85025; 85379; 85610; 85730; 86140; 87040; 93005; 93010; 96374; 96375; 99284; 99285-25; A9270-GY; J0456; J0696; J1815-GY; J1940; J2270; J3490; J7050

== ENCOUNTER 2022-06-24 06:10 | Observation (INO) | payer MEDICARE, MEDICAID ==
[2022-06-24] MEDS ORDERED: Aspirin 81 MG Tab.Chew ONE (06:23)
[2022-06-24] MEDS ORDERED: Aspirin 81 MG Tab.Chew PO ONE (06:36)
[2022-06-24] MEDS ORDERED: Nitroglycerin 0.4 MG Tab.SL SL ONE (06:45)
[2022-06-24] MEDS ORDERED: Morphine 2 MG/ML SYRINGE IVPUSH ONE (06:45)
[2022-06-24] MEDS ORDERED: Albuterol/Ipratropium 3.0-0.5 MG/3 ML Neb Soln NEB ONE (06:46)
[2022-06-24] MEDS ORDERED: Albuterol/Ipratropium 3.0-0.5 MG/3 ML Neb Soln ONE (06:47)
[2022-06-24] MEDS ORDERED: Nitroglycerin 0.4 MG Tab.SL ONE (06:47)
[2022-06-24 07:21] LABS: ANION GAP 13.9 mmol/L (5-15)
[2022-06-24] MEDS ORDERED: Furosemide 40 MG/4 ML VIAL IVPUSH ONE ×2 (08:42→11:00)
[2022-06-24] MEDS ORDERED: Furosemide 40 MG/4 ML VIAL ONE (08:44)
[2022-06-24] MEDS ORDERED: Acetaminophen/HYDROcodone 325-10 MG Tab PO PRN (09:58)
[2022-06-24] MEDS ORDERED: Nitroglycerin 0.4 MG Tab.SL SL PRN (09:58)
[2022-06-24] MEDS ORDERED: Acetaminophen 325 MG Tab PO PRN (09:58)
[2022-06-24] MEDS ORDERED: Albuterol/Ipratropium 3.0-0.5 MG/3 ML Neb Soln NEB PRN (10:09)
[2022-06-24] MEDS ORDERED: Glucagon,Human Recombinant 1 MG Vial IM PRN (10:14)
[2022-06-24] MEDS ORDERED: 50% Dextrose in Water 50 ML Syringe IVPUSH PRN (10:14)
[2022-06-24] MEDS ORDERED: VILANTER INH SCH (10:15)
[2022-06-24] MEDS ORDERED: [UNRECOGNIZED DRUG - OTHER] INH SCH (10:15)
[2022-06-24] MEDS ORDERED: Metoprolol Tartrate 50 MG Tab PO SCH (10:15)
[2022-06-24] MEDS ORDERED: AMLODIPINE 10 MG PO SCH (10:15)
[2022-06-24] MEDS ORDERED: Ferrous Sulfate 325 MG Tab PO SCH (10:15)
[2022-06-24] MEDS ORDERED: Gabapentin 300 MG Cap PO SCH (10:15)
[2022-06-24] MEDS ORDERED: ISOSORBIDE MONONITRATE 60 MG PO SCH (10:15)
[2022-06-24] MEDS ORDERED: OMEPRAZOLE 20 MG PO SCH (10:15)
[2022-06-24] MEDS ORDERED: FLUTICASONE INH SCH (10:15)
[2022-06-24] MEDS ORDERED: UMECLIDIN INH SCH (10:15)
[2022-06-24] MEDS ORDERED: FERROUS SULFATE 325 MG PO SCH (10:41)
[2022-06-24] MEDS ORDERED: METOPROLOL TARTRATE 50 MG PO SCH (10:42)
[2022-06-24] MEDS ORDERED: GABAPENTIN 300 MG PO SCH (10:44)
[2022-06-24] MEDS ORDERED: methylPREDNISolone Sodium Succinate 125 MG/2 ML SDV IVPUSH ONE (11:00)
[2022-06-24 11:17] LABS: O2 DELIVERY DEVICE HI FLOW NASAL CANNU
[2022-06-24 11:21] LABS: PCO2 ARTERIAL 38 mmHG (35-48)
[2022-06-24 11:22] LABS: BASE EXCESS ARTERIAL 1 mmol/L ((-2)-(+3)); BICARBONATE,ARTERIAL 25 mmol/L (21-28); O2 SATURATION ARTERIAL 92 %; PO2 ARTERIAL 62 mmHG (83-108)
[2022-06-24 11:30] VITALS: BP 149/93
[2022-06-24] MEDS ORDERED: Nicotine 7 MG/24 Hr Patch TRDERM SCH (11:30)
[2022-06-24 11:41] VITALS: PULSE 100
[2022-06-24 11:55] LABS: RESPIRATORY SYNCYTIAL VIR NAA NEGATIVE (NEGATIVE)
[2022-06-24 11:57] LABS: CORONAVIRUS COVID-19 NAA NEGATIVE (NEGATIVE)
[2022-06-24] MEDS ORDERED: INSULIN LISPRO 100 UNIT/ML SUBCUT SCH (12:00)
[2022-06-24] MEDS ORDERED: Etomidate 2 MG/ML 10 ML SDV IV ONE (12:54)
[2022-06-24] MEDS ORDERED: Succinylcholine 200 MG/10 ML MDV IV ONE (12:55)
[2022-06-24] MEDS ORDERED: fentaNYL 100 MCG/2 ML SDV ONE (13:01)
[2022-06-24] MEDS ORDERED: Albuterol 90 MCG/6.7 GM Inhaler INH ONE (13:07)
[2022-06-24] MEDS ORDERED: Midazolam 1 MG/ML 2 ML SDV IVPUSH ONE ×2 (13:10→13:30)
[2022-06-24] MEDS ORDERED: fentaNYL 100 MCG/2 ML SDV IVPUSH ONE (13:12)
[2022-06-24] MEDS ORDERED: Rocuronium 50 MG/5 ML Vial IVPUSH ONE (13:15)
[2022-06-24] MEDS ORDERED: Warfarin 2.5 MG Tab PO ONE (18:00)
[2022-06-24] MEDS ORDERED: LANTUS SUBCUT SCH (19:00)
[2022-06-24] MEDS ORDERED: ATORVASTATIN 80 MG PO SCH (21:00)
[2022-06-24] MEDS ORDERED: OLOPATADINE 0.2% EYEBOTH SCH (21:00)
[2022-06-25] MEDS ORDERED: Aspirin 81 MG Tab.EC PO SCH (09:00)
== END 2022-06-24 13:25 ==
LOC: KA.ED 06:10 → KA.MS 08:43
PROVIDERS: ADMIT Physician Assistant; ATTEND Family Medicine
DX: I11.0 Hypertensive heart disease with heart failure (principal); I50.9 Heart failure, unspecified; I48.0 Paroxysmal atrial fibrillation; E78.00 Pure hypercholesterolemia, unspecified; J44.9 Chronic obstructive pulmonary disease, unspecified; K21.9 Gastro-esophageal reflux disease without esophagitis; E11.40 Type 2 diabetes mellitus with diabetic neuropathy, unspecified; E66.9 Obesity, unspecified; R09.02 Hypoxemia; I47.1 Supraventricular tachycardia; J90 Pleural effusion, not elsewhere classified; J81.1 Chronic pulmonary edema; Z79.82 Long term (current) use of aspirin; Z79.01 Long term (current) use of anticoagulants; Z79.899 Other long term (current) drug therapy; Z79.84 Long term (current) use of oral hypoglycemic drugs; Z79.4 Long term (current) use of insulin; Z95.5 Presence of coronary angioplasty implant and graft; Z68.41 Body mass index [BMI] 40.0-44.9, adult; Z87.891 Personal history of nicotine dependence; Z91.041 Radiographic dye allergy status; Z20.822 Contact with and (suspected) exposure to COVID-19
CPT/HCPCS: 0241U; 36415; 36600; 51702; 71045; 80053; 82803; 82947; 83605; 83880; 84484; 85025; 85610; 85730; 93010; 94640; 96365; 96375; 96376; 99284; 99285-25; A9270-GY; J0330; J1815-GY; J1940; J2250; J2270; J2930; J3010; J3490; J7620-GY

== ENCOUNTER 2023-11-25 11:41 | Inpatient (IN) | payer MEDICARE, MEDICAID ==
[2023-11-25] MEDS ORDERED: Sodium Chloride 0.9% 10 ML Syringe FLUSH PRN (11:51)
[2023-11-25 12:03] LABS: BASOPHILS ABSOLUTE AUTO 0.01 10^3/uL (0.00-0.10); BASOPHILS PERCENT AUTO 0.1 % (0.0-1.0); EOSINOPHILS ABSOLUTE AUTO 0.22 10^3/uL (0.10-0.30); EOSINOPHILS PERCENT AUTO 3.3 % (1.0-3.0); HEMATOCRIT 40.5 % (40.0-52.0); HEMOGLOBIN 12.4 g/dL (13.0-17.0); IMMATURE GRAN ABSOLUTE AUTO 0.01 10^3/uL (0.00-0.50); IMMATURE GRAN PERCENT AUTO 0.1 % (0.0-5.0); LYMPHOCYTES ABSOLUTE AUTO 1.58 10^3/uL (1.00-4.00); LYMPHOCYTES PERCENT AUTO 23.4 % (20.0-40.0); MEAN CORPUSCULAR HEMOGLOBIN 30.2 pg (27.0-31.0); MEAN CORPUSCULAR HGB CONC 30.6 g/dL (32.0-36.0); MEAN CORPUSCULAR VOLUME 98.5 fL (82.0-92.0); MEAN PLATELET VOLUME 9.7 fL (7.4-10.4); MONOCYTES PERCENT AUTO 8.9 % (2.0-8.0); NEUTROPHILS ABSOLUTE AUTO 4.32 10^3/uL (2.50-7.00); NEUTROPHILS PERCENT AUTO 64.2 % (50.0-70.0); PLATELET COUNT,PLT 256 10^3/uL (150-400); RED BLOOD CELL COUNT 4.11 10^6/uL (4.50-6.00); RED CELL DISTRIBUTION WIDTH 14.8 % (11.5-14.5); WHITE BLOOD CELL COUNT,WBC 6.74 10^3/uL (5.00-10.00)
[2023-11-25] MEDS: methylPREDNISolone Sodium Succinate 125 MG/2 ML SDV IVPUSH ONE (12:20)
[2023-11-25 12:23] LABS: ALBUMIN 2.21 g/dL (3.40-5.00); BILIRUBIN TOTAL 0.5 mg/dL (0.2-1.0); CALCIUM 8.2 mg/dL (8.7-10.3); CARBON DIOXIDE,CO2 32.4 mmol/L (21.0-32.0); CREATININE 1.49 mg/dL (0.51-1.17); EST CRCL DRUG DOSING (CG) 51.36 mL/min; PROTEIN TOTAL,TP 7.1 g/dL (6.4-8.2)
[2023-11-25] MEDS: Albuterol/Ipratropium 3.0-0.5 MG/3 ML Neb Soln NEB ONE ×2 (12:28→13:25)
[2023-11-25] MEDS: Sodium Chloride 0.9% 1,000 ML IV ONE (12:49)
[2023-11-25] MEDS: Sodium Chloride 0.9% 1,000 ML ONE (12:49)
[2023-11-25 12:54] LABS: INR 1.1 (0.9-1.1); PROTHROMBIN TIME 11.7 SEC (9.3-12.2); PTT,PARTIAL THROMBOPLSTIN TIME 27.9 SEC (23.3-34.9)
[2023-11-25 12:55] LABS: POTASSIUM,K 4.4 mmol/L (3.5-5.1)
[2023-11-25] MEDS: Furosemide 40 MG/4 ML VIAL IVPUSH ONE (13:29)
[2023-11-25] MEDS ORDERED: Glucagon,Human Recombinant 1 MG Vial IM PRN (14:41)
[2023-11-25] MEDS ORDERED: Acetaminophen 325 MG Tab PO PRN (14:41)
[2023-11-25] MEDS ORDERED: Ondansetron 4 MG Tab.DIS PO PRN (14:41)
[2023-11-25] MEDS ORDERED: 50% Dextrose in Water 50 ML Syringe IVPUSH PRN (14:41)
[2023-11-25] MEDS ORDERED: Acetaminophen/HYDROcodone 325-10 MG Tab PO PRN (14:53)
[2023-11-25] MEDS ORDERED: Albuterol/Ipratropium 3.0-0.5 MG/3 ML Neb Soln NEB PRN (15:02)
[2023-11-25] MEDS: Furosemide 40 MG/4 ML VIAL IVPUSH SCH (15:19)
[2023-11-25] MEDS: Albuterol/Ipratropium 3.0-0.5 MG/3 ML Neb Soln NEB SCH (17:55)
[2023-11-25] MEDS: Insulin Lispro 100 Unit/ML 3 ML KwikPen SUBCUT SCH (17:55)
[2023-11-25 19:13] LABS: O2 DELIVERY DEVICE HI FLOW NASAL CANNU
[2023-11-25 19:14] LABS: BASE EXCESS ARTERIAL -1 mmol/L ((-2)-(+3)); BICARBONATE,ARTERIAL 24 mmol/L (21-28); O2 SATURATION ARTERIAL 89.7 %; PCO2 ARTERIAL 41 mmHG (35-48); PH,ARTERIAL 7.38 pH (7.35-7.45)
[2023-11-25 19:15] LABS: PO2 ARTERIAL 59 mmHG (83-108)
[2023-11-25 21:35] VITALS: BP 135/74; PULSE 94
[2023-11-25] MEDS: Apixaban 5 MG Tab PO SCH (22:23)
[2023-11-25] MEDS: Metoprolol Tartrate 50 MG Tab PO SCH (22:23)
[2023-11-25] MEDS: Omeprazole 20 MG Cap.CR PO SCH (22:24)
[2023-11-25] MEDS: Gabapentin 300 MG Cap PO SCH (22:24)
[2023-11-26] MEDS ORDERED: Aspirin 81 MG Tab.EC PO SCH (09:00)
[2023-11-26] MEDS ORDERED: EMPAGLIFLOZIN 10 MG PO SCH (09:00)
[2023-11-26] MEDS ORDERED: Arformoterol 15 MCG/2 ML Neb Soln NEB SCH (09:00)
[2023-11-26] MEDS ORDERED: Insulin Glargine,Hum.Rec.Anlog 100 UNIT/ML 3 ML Pen SUBCUT SCH (09:00)
[2023-11-26] MEDS ORDERED: Sertraline 50 MG Tab PO SCH (09:00)
[2023-11-26] MEDS ORDERED: Hydrocortisone Sodium Succinate 100 MG/2 ML SDV IVPUSH SCH (09:00)
== END 2023-11-25 21:51 | disposition other institution (70) | DRG 291 ==
LOC: KA.ED 11:41 → KA.MS 13:28
PROVIDERS: ADMIT Internal Medicine; ATTEND Internal Medicine
PROC: 4A033R1 Measurement of Arterial Saturation, Peripheral, Percutaneous Approach (ICD-10-PCS; principal; 2023-11-25)
PROC: 5A0935A Assistance with Respiratory Ventilation, Less than 24 Consecutive Hours, High Flow/Velocity Cannula (ICD-10-PCS; 2023-11-25)
DX: I11.0 Hypertensive heart disease with heart failure (principal); E11.9 Type 2 diabetes mellitus without complications; I50.33 Acute on chronic diastolic (congestive) heart failure; I50.9 Heart failure, unspecified; N17.9 Acute kidney failure, unspecified; J96.01 Acute respiratory failure with hypoxia; J44.1 Chronic obstructive pulmonary disease with (acute) exacerbation; I48.0 Paroxysmal atrial fibrillation; I25.10 Atherosclerotic heart disease of native coronary artery without angina pectoris; E78.00 Pure hypercholesterolemia, unspecified; K21.9 Gastro-esophageal reflux disease without esophagitis; M54.9 Dorsalgia, unspecified; G89.29 Other chronic pain; Z91.048 Other nonmedicinal substance allergy status; E11.40 Type 2 diabetes mellitus with diabetic neuropathy, unspecified; E66.9 Obesity, unspecified; F17.210 Nicotine dependence, cigarettes, uncomplicated; N28.9 Disorder of kidney and ureter, unspecified; Z96.659 Presence of unspecified artificial knee joint; Z99.81 Dependence on supplemental oxygen; Z91.041 Radiographic dye allergy status; Z79.899 Other long term (current) drug therapy; Z79.82 Long term (current) use of aspirin; Z79.4 Long term (current) use of insulin; Z79.51 Long term (current) use of inhaled steroids; Z79.01 Long term (current) use of anticoagulants; I25.2 Old myocardial infarction; Z95.5 Presence of coronary angioplasty implant and graft; Z86.010 Personal history of colon polyps; Z98.49 Cataract extraction status, unspecified eye; Z98.890 Other specified postprocedural states
CPT/HCPCS: 36415; 36600; 71045; 80053; 82803; 82947; 83605; 83880; 84484; 85025; 85610; 85730; 94640; 96374; 99285-25; A9270-GY; J1815-GY; J1940; J2919; J7030; J7620-GY; Q3014

== ENCOUNTER 2024-02-01 10:54 | Emergency (ER) | payer MEDICARE, MEDICAID ==
[2024-02-01] MEDS: Albuterol 0.083% 2.5 MG/3 ML Neb Soln NEB ONE ×4 (10:59→12:48)
[2024-02-01 11:14] LABS: BASOPHILS ABSOLUTE AUTO 0.02 10^3/uL (0.00-0.10); BASOPHILS PERCENT AUTO 0.2 % (0.0-1.0); EOSINOPHILS ABSOLUTE AUTO 0.27 10^3/uL (0.10-0.30); EOSINOPHILS PERCENT AUTO 3.3 % (1.0-3.0); HEMATOCRIT 42.1 % (40.0-52.0); HEMOGLOBIN 12.8 g/dL (13.0-17.0); IMMATURE GRAN ABSOLUTE AUTO 0.02 10^3/uL (0.00-0.50); IMMATURE GRAN PERCENT AUTO 0.2 % (0.0-5.0); LYMPHOCYTES ABSOLUTE AUTO 1.88 10^3/uL (1.00-4.00); LYMPHOCYTES PERCENT AUTO 22.7 % (20.0-40.0); MEAN CORPUSCULAR HGB CONC 30.4 g/dL (32.0-36.0); MEAN CORPUSCULAR VOLUME 98.6 fL (82.0-92.0); MEAN PLATELET VOLUME 8.6 fL (7.4-10.4); MONOCYTES ABSOLUTE AUTO 0.64 10^3/uL (0.10-0.80); MONOCYTES PERCENT AUTO 7.7 % (2.0-8.0); NEUTROPHILS ABSOLUTE AUTO 5.45 10^3/uL (2.50-7.00); NEUTROPHILS PERCENT AUTO 65.9 % (50.0-70.0); PLATELET COUNT,PLT 245 10^3/uL (150-400); RED BLOOD CELL COUNT 4.27 10^6/uL (4.50-6.00); WHITE BLOOD CELL COUNT,WBC 8.28 10^3/uL (5.00-10.00)
[2024-02-01] MEDS: methylPREDNISolone Sodium Succinate 125 MG/2 ML SDV IVPUSH ONE (11:17)
[2024-02-01 11:29] LABS: ANION GAP 11.9 mmol/L (5-15); BLOOD UREA NITROGEN,BUN 27 mg/dL (7-18); C-REACTIVE PROTEIN 2.97 mg/dL (0.00-0.50); CALCIUM 8.5 mg/dL (8.7-10.3); CARBON DIOXIDE,CO2 31.1 mmol/L (21.0-32.0); CHLORIDE,CL 102 mmol/L (98-107); CREATININE 1.53 mg/dL (0.51-1.17); GLUCOSE RANDOM 161 mg/dL (70-140); SODIUM,NA 140 mmol/L (136-145)
[2024-02-01 11:31] VITALS: BP 165/125; PULSE 84
[2024-02-01 11:31] LABS: ESTIMATED GFR 49 mL/min (>=60)
[2024-02-01 11:32] LABS: B-TYPE NATRIURETIC PEPTIDE,BNP 389 pg/mL (0-100)
[2024-02-01 11:33] LABS: O2 SATURATION ARTERIAL,POC 94.4 % (94-98); PCO2 ARTERIAL,POC 43 mmHg (35-48); PH ARTERIAL,POC 7.39 pH (7.35-7.45); PO2 ARTERIAL,POC 74 mmHg (83-108)
[2024-02-01] MEDS: Albuterol/Ipratropium 3.0-0.5 MG/3 ML Neb Soln NEB ONE (11:48)
== END 2024-02-01 13:56 ==
LOC: KA.ED 10:54
DX: J80 Acute respiratory distress syndrome (principal); J44.1 Chronic obstructive pulmonary disease with (acute) exacerbation; J96.11 Chronic respiratory failure with hypoxia; I48.0 Paroxysmal atrial fibrillation; E66.01 Morbid (severe) obesity due to excess calories; I48.91 Unspecified atrial fibrillation; I11.0 Hypertensive heart disease with heart failure; I50.9 Heart failure, unspecified; I25.2 Old myocardial infarction; K21.9 Gastro-esophageal reflux disease without esophagitis; E11.9 Type 2 diabetes mellitus without complications; Z68.41 Body mass index [BMI] 40.0-44.9, adult; Z79.82 Long term (current) use of aspirin; Z79.4 Long term (current) use of insulin; Z95.5 Presence of coronary angioplasty implant and graft; Z79.899 Other long term (current) drug therapy; Z91.041 Radiographic dye allergy status
CPT/HCPCS: 36415; 36600; 71046; 80048; 82803; 83605; 83880; 85025; 86140; 94640; 96374; 99284; 99285-25; J2919; J7613-GY; J7620-GY